=== PATIENT | female | born 1980 | race American Indian/Alaskan Native ===

== ENCOUNTER 2018-04-05 12:46 | Emergency (ER) | payer SELFPAY ==
[2018-04-05] MEDS ORDERED: REGLAN IV ONE (13:13)
[2018-04-05] MEDS ORDERED: NACL 0.9% 1000 ML 1,000 ML IV ONE (13:13)
[2018-04-05 13:49] VITALS: BP 135/76
[2018-04-05 13:58] LABS: Basophils # (Auto) 0.1 K/mm3 (0.0-0.1); Basophils % (Auto) 0.5 % (0.0-1.8); Eosinophils # (Auto) 0.1 K/mm3 (0.0-0.4); Eosinophils % (Auto) 0.6 % (0.0-4.3); Hemoglobin 12.2 gm/dl (10.1-14.3); Lymphocytes # (Auto) 1.6 K/mm3 (1.2-5.4); Lymphocytes % (Auto) 13.5 % (13.4-35.0); Mean Corpuscular HGB Conc 33 % (30-34); Mean Corpuscular Volume 87 fl (79-97); Monocytes # (Auto) 0.5 K/mm3 (0.0-0.8); Monocytes % (Auto) 3.8 % (0.0-7.3); Platelet Count 423 K/mm3 (140-440); Red Blood Count 4.23 M/mm3 (3.65-5.03); Red Cell Distribution Width 13.3 % (13.2-15.2)
[2018-04-05 14:17] LABS: BUN/Creatinine Ratio 15; Blood Urea Nitrogen 6 mg/dL (7-17); Calcium 9.1 mg/dL (8.4-10.2); Hemolysis Index 5
[2018-04-05] MEDS ORDERED: K-DUR PO ONE (14:19)
--- NOTE | 2018-04-05 14:39 | Emergency Department Report ---
ED N/V/D HPI - General Chief complaint: Nausea/Vomiting/Diarrhea Stated complaint: 13WKS PREG/VOMITING/LIGHTHEADNESS Time Seen by Provider: 04/05/18 13:09 Source: patient Mode of arrival: Ambulatory Limitations: No Limitations - History of Present Illness Initial comments: This is a 38-year-old female nontoxic, well nourished in appearance, no acute signs of distress presents to the ED with c/o of nausea and vomiting 4 days. Patient describes vomiting as food content. Patients stated she is about 12 weeks . She denies any pelvic pain. Patient denies any vaginal bleeding, vaginal discharge or any urinary symptoms. Patient denies any abdominal pain, chest pain, short of breath, fever, chills, headache, stiff neck, numbness or tingling. Patient denies any diarrhea or constipation. Patient denies any recent travels. Patient denies any drug allergies significant past medical history. MD complaint: nausea, vomiting -: days(s) (4) Description of Vomiting: food contents Associated Abdominal Pain: No Radiation: none Pain Scale: 0 Consistency: constant Improves with: none Worsens with: none Associated Symptoms: nausea/vomiting. denies: myalgias, chest pain, cough, diaphoresis, fever/chills, headaches, loss of appetite, malaise, rash, dysuria, shortness of breath, syncope, weakness - Related Data Home Medications Medication Instructions Recorded Confirmed Last Taken Gabapentin 300 mg PO TID 03/28/14 03/28/14 03/27/14 Naproxen [Naprosyn] 375 mg PO BID 03/28/14 03/28/14 03/27/14 Previous Rx's Medication Instructions Recorded Last Taken Type Nitrofurantoin [place]/M-Cryst 100 mg PO Q12HR #10 capsule 03/28/14 Unknown Rx [Macrobid] metroNIDAZOLE [Flagyl] 500 mg PO BID #14 tablet 03/28/14 Unknown Rx traMADol [Ultram 50 MG tab] 50 mg PO Q6HR PRN #20 tablet 03/28/14 Unknown Rx Metoclopramide [Reglan] 10 mg PO TID PRN #30 tab 04/05/18 Unknown Rx 21/Iron Fu/Folic Acid 1 each PO DAILY #30 tablet 04/05/18 Unknown Rx [ Complete Caplet] Allergies Allergy/AdvReac Type Severity Reaction Status Date / Time No Known Allergies Allergy Verified 03/28/14 02:31 ED Review of Systems ROS: Stated complaint: 13WKS PREG/VOMITING/LIGHTHEADNESS Other details as noted in HPI Constitutional: denies: chills, fever Eyes: denies: eye pain, eye discharge, vision change ENT: denies: ear pain, throat pain Respiratory: denies: cough, shortness of breath, wheezing Cardiovascular: denies: chest pain, palpitations Endocrine: no symptoms reported Gastrointestinal: nausea, vomiting. 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) Additional medical history: back injury, Vaginal delivery x 4 - Surgical History Past Surgical History?: No - Social History Smoking Status: Never Smoker Substance Use Type: None - Medications Home Medications: Home Medications Medication Instructions Recorded Confirmed Last Taken Type Gabapentin 300 mg PO TID 03/28/14 03/28/14 03/27/14 History Naproxen [Naprosyn] 375 mg PO BID 03/28/14 03/28/14 03/27/14 History Nitrofurantoin [place]/M-Cryst 100 mg PO Q12HR #10 capsule 03/28/14 Unknown Rx [Macrobid] metroNIDAZOLE [Flagyl] 500 mg PO BID #14 tablet 03/28/14 Unknown Rx traMADol [Ultram 50 MG tab] 50 mg PO Q6HR PRN #20 tablet 03/28/14 Unknown Rx Metoclopramide [Reglan] 10 mg PO TID PRN #30 tab 04/05/18 Unknown Rx 21/Iron Fu/Folic Acid 1 each PO DAILY #30 tablet 04/05/18 Unknown Rx [ Complete Caplet] ED Physical Exam - General Limitations: No Limitations General appearance: alert, in no apparent distress - Head Head exam: Present: atraumatic, normocephalic - Eye Eye exam: Present: normal appearance - Neck Neck exam: Present: normal inspection, full ROM - Respiratory Respiratory exam: Present: normal lung sounds bilaterally. Absent: respiratory distress, wheezes, rales, rhonchi, stridor, chest wall tenderness, accessory muscle use, decreased breath sounds, prolonged expiratory - Cardiovascular Cardiovascular Exam: Present: regular rate, normal rhythm, normal heart sounds. Absent: irregular rhythm, systolic murmur, diastolic murmur, rubs, gallop - GI/Abdominal GI/Abdominal exam: Present: soft, normal bowel sounds. Absent: distended, tenderness, guarding, rebound, rigid, diminished bowel sounds - Back Exam Back exam: Present: normal inspection, full ROM - Neurological Exam Neurological exam: Present: alert, oriented X3 - Psychiatric Psychiatric exam: Present: normal affect, normal mood - Skin Skin exam: Present: warm, dry, intact, normal color. Absent: rash ED Course Vital Signs 04/05/18 04/05/18 04/05/18 12:56 13:10 13:49 Temperature 98.9 F 98.5 F Pulse Rate 107 H 103 H Respiratory 16 16 16 Rate Blood Pressure 135/82 Blood Pressure 135/76 [Left] O2 Sat by Pulse 98 100 Oximetry - Reevaluation(s) Reevaluation #1: 04/05/18 14:42 Patient is speaking in full sentences with no signs of distress noted. ED Medical Decision Making - Lab Data Result diagrams: 04/05/18 13:42 04/05/18 13:42 - Medical Decision Making This is a 38-year-old female that presents with hyperemesis gravidarum and hypokalemia. Patient is stable and was examined by me. There is no abdominal te nderness. Negative signs of symptoms of appendicitis. Labs obtained. Vital signs are stable prior to discharge. Patient received Reglan, K+ 40 meq, and 1L Normal saline in the ED which patient stated symptoms has resolved and subsided. A by mouth challenge has been obtained and patient tolerated well with no nausea vomiting. Patient was also instructed to Follow-up with a OBGYN doctor in 3-5 days or if symptoms worsen and continue return to emergency room as soon as possible. At time of discharge, the patient does not seem toxic or ill in appearance. No acute signs of distress noted. Patient agrees to discharge treatment plan of care. No further questions noted by the patient. Critical care attestation.: If time is entered above; I have spent that time in minutes in the direct care of this critically ill patient, excluding procedure time. ED Disposition Clinical Impression: Hyperemesis gravidarum Disposition: DC-01 TO HOME OR SELFCARE Is pt being admited?: No Does the pt Need Aspirin: No Condition: Stable Instructions: Hyperemesis Gravidarum (ED), (ED) Additional Instructions: Follow-up with a OBGYN doctor in 3-5 days or if symptoms worsen and continue return to emergency room as soon as possible. Prescriptions: Metoclopramide [Reglan] 10 mg PO TID PRN #30 tab PRN Reason: Nausea 21/Iron Fu/Folic Acid [ Complete Caplet] 1 each PO DAILY #30 tablet Referrals: PRIMARY CARE, [Primary Care Provider] - 3-5 Days CODIE LEES MD [Staff Physician] - 3-5 Days [facility] [Provider Group] - 3-5 Days Forms: Work/School Release Form(ED)
== END 2018-04-05 14:59 | disposition home or self-care (01) ==
LOC: ED 12:46
DX: O21.1 Hyperemesis gravidarum with metabolic disturbance (principal); O99.341 Other mental disorders complicating pregnancy, first trimester; F31.9 Bipolar disorder, unspecified; Z3A.12 12 weeks gestation of pregnancy
CPT/HCPCS: 36415; 80048; 85025; 96361; 96374; 99283; J2765; J7030

== ENCOUNTER 2018-06-26 12:23 | Outpatient (CLI) | payer MEDICAID ==
[2018-06-26] MEDS ORDERED: LACTATED RINGERS 500 ML IV ONE (12:48)
[2018-06-26 16:52] VITALS: BP 131/63
--- NOTE | 2018-06-26 16:58 | Ultrasound Report ---
PROCEDURE: US OB LIMITED TECHNIQUE: HISTORY: f/u fall r/o abruption placenta location COMPARISONS: FINDINGS: There is a single living intrauterine gestation currently in the breech presentation with a hea rt rate of 141 bpm. Subjectively the amount of amniotic fluid appears normal. The placenta is located anteriorly grade 1. No placental abruption is visualized. No definite placenta previa. The internal cervical os was not studied in detail. Weekend exam of the fetus was not performed as this was not requested. No measurements were obt ained. IMPRESSION: Subjectively the amount of amniotic fluid appears normal. Single living intrauterine gestation currently visualized breech presentation. Grade 1 placenta. No evidence of placental abruption. Placenta previa is not identified however the i nternal cervical os was not studied in detail. This is a limited exam. No other abnormalities are identified. This document is electronically signed by Padilla Muniz MD., June 26 2018 04:56:20 PM ET
== END 2018-06-26 17:32 | disposition home or self-care (01) ==
LOC: TRG 12:23
PROVIDERS: ATTEND Obstetrics & Gynecology
DX: O47.02 False labor before 37 completed weeks of gestation, second trimester (principal); Z3A.24 24 weeks gestation of pregnancy
CPT/HCPCS: 76815

== ENCOUNTER 2018-09-12 15:06 | Observation (INO) | payer MEDICAID ==
[2018-09-12] MEDS ORDERED: LACTATED RINGERS 500 ML IV ONE ×2 (15:58→17:00)
[2018-09-12] MEDS ORDERED: ZOFRAN IV ONE (17:41)
[2018-09-12 18:17] LABS: Alanine Aminotransferase 23 units/L (7-56); BUN/Creatinine Ratio 15; Blood Urea Nitrogen 6 mg/dL (7-17); Calcium 10.1 mg/dL (8.4-10.2); Hemolysis Index 11
[2018-09-12 20:24] LABS: Bilirubin,Urine NEG (Negative); Blood,Urine NEG (Negative); Calcium Oxalate Crystals,Urine 2+; Color,Urine Amber (Yellow); Mucus,Urine 3+ /HPF; Urobilinogen,Urine < 2.0 mg/dL (<2.0)
[2018-09-12] MEDS ORDERED: ZOFRAN IV PRN (21:02)
[2018-09-12] MEDS ORDERED: TYLENOL PO PRN (21:02)
[2018-09-12] MEDS ORDERED: COLACE PO PRN (21:02)
[2018-09-12] MEDS ORDERED: REGLAN IV SCH (22:00)
[2018-09-12] MEDS ORDERED: D5LR 1,000 ML IV SCH ×2 (22:00)
[2018-09-12] MEDS ORDERED: PHENERGAN PR SCH (22:00)
[2018-09-13] MEDS: KCL 10MEQ/100ML 10 MEQ/100 ML BAG IV SCH ×4 (00:40→16:57)
[2018-09-13] MEDS ORDERED: PRENATAL VITAMIN PO SCH (10:00)
[2018-09-13] MEDS: PRENATAL VITAMIN PO SCH (11:02)
--- NOTE | 2018-09-13 13:13 | History and Physical Report ---
History of Present Illness Date of examination: 09/13/18 Date of admission: 09/12/18 23:42 Chief complaint: nausea and vomiting History of present illness: 38 yo at 35 weeks here for nausea and vomiting and contractions. 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 SHe also has hx of thrombocytosis seen by Hematology/ She has a hx of PTD at 36 weeks Past History Past Medical History: no pertinent history Past Surgical History: no surgical history Family/Genetic History: none Social history: single. denies: smoking, alcohol abuse, prescription drug abuse - Obstetrical History Expected Date of Delivery: 10/12/18 Actual Gestation: 35 Week(s) 6 Day(s) : 5 Para: 3 Hx # Term Pregnancies: 1 Number of Pregnancies: 1 Spontaneous Abortions: 0 Induced : 0 Number of Living Children: 4 Medications and Allergies Allergies Allergy/AdvReac Type Severity Reaction Status Date / Time No Known Allergies Allergy Verified 03/28/14 02:31 Home Medications Medication Instructions Recorded Confirmed Last Taken Type Gabapentin 300 mg PO TID 03/28/14 03/28/14 03/27/14 History Naproxen [Naprosyn] 375 mg PO BID 03/28/14 03/28/14 03/27/14 History Nitrofurantoin [place]/M-Cryst 100 mg PO Q12HR #10 capsule 03/28/14 Unknown Rx [Macrobid] metroNIDAZOLE [Flagyl] 500 mg PO BID #14 tablet 03/28/14 Unknown Rx traMADol [Ultram 50 MG tab] 50 mg PO Q6HR PRN #20 tablet 03/28/14 Unknown Rx Metoclopramide [Reglan] 10 mg PO TID PRN #30 tab 04/05/18 Unknown Rx 21/Iron Fu/Folic Acid 1 each PO DAILY #30 tablet 04/05/18 Unknown Rx [ Complete Caplet] Active Meds: Active Medications Acetaminophen (Tylenol) 650 mg PO Q4H PRN PRN Reason: Pain MILD(1-3)/Fever >100.5/QUIROZ Last Admin: 09/13/18 11:00 Dose: 650 mg Documented by: Docusate Sodium (Colace) 100 mg PO Q12H PRN PRN Reason: Constipation Dextrose/Lactated Ringer's (D5lr) 1,000 mls @ 500 mls/hr IV DIRECT CRUZ Stop: 09/13/18 23:59 Last Admin: 09/13/18 00:02 Dose: 500 mls/hr Documented by: Dextrose/Lactated Ringer's (D5lr) 1,000 mls @ 150 mls/hr IV DIRECT CRUZ Potassium Chloride (Kcl 10meq/100ml) 10 meq in 100 mls @ 100 mls/hr IV Q1H CRUZ Stop: 09/13/18 15:29 Multivitamins/Iron/Calcium ( Vitamin) 1 each PO QDAY [facility] Last Admin: 09/13/18 11:02 Dose: Not Given Documented by: Ondansetron HCl (Zofran) 4 mg IV Q6H PRN PRN Reason: N/V unrelieved by Juvenal Last Admin: 09/13/18 08:59 Dose: 4 mg Documented by: Review of Systems All systems: negative - Vital Signs Vital signs: Vital Signs Pulse BP 103 H 114/71 09/12/18 20:27 09/12/18 20:27 Temp Pulse Resp BP Pulse Ox 98.0 F 99 H 18 119/67 97 09/13/18 08:45 09/13/18 04:01 09/13/18 04:01 09/13/18 04:01 09/13/18 01:46 - Physical Exam Breasts: Positive: normal Cardiovascular: Regular rate, Normal S1 Lungs: Positive: Clear to auscultation, Normal air movement Abdomen: Positive: normal appearance, soft, guarding, normal bowel sounds. Negative: distention, tenderness Genitourinary (Female): Positive: normal external genitalia, normal perenium Vulva: both: normal Uterus: Positive: normal size, normal contour Deep Tendon Reflex Grade: Normal +2 - Obstetrical FHR: category 1 Cervical Dilatation: 0.5 Uterine Tone Measurement Phase: Resting Uterine Contraction Intensity: Mild Results Result Diagrams: 09/13/18 06:32 Abnormal lab results 09/12/18 09/12/18 09/13/18 Range/Units 16:56 19:40 06:32 Potassium 3.0 L 3.1 L (3.6-5.0) mmol/L Carbon Dioxide 19 L (22-30) mmol/L BUN 6 L (7-17) mg/dL Creatinine 0.4 L (0.7-1.2) mg/dL Alkaline Phosphatase 180 H (35-129) units/L Albumin 3.0 L (3.9-5) g/dL Urine WBC (Auto) 7.0 H (0.0-6.0) /HPF All other labs normal. Assessment and Plan A/P IUP 35+ weeks n/v hypokalemia obesity Runs of postassium last level 3.1 repeat zofran for nausea - no vomiting in several hours continuious monitoring US abdomen to assess gall bladder Liver enzymes, cbc, cmp today
[2018-09-13 16:07] LABS: Basophils % (Auto) 0.5 % (0.0-1.8); Eosinophils % (Auto) 0.6 % (0.0-4.3); Hematocrit 33.4 % (30.3-42.9); Hemoglobin 11.5 gm/dl (10.1-14.3); Lymphocytes # (Auto) 1.3 K/mm3 (1.2-5.4); Lymphocytes % (Auto) 17.1 % (13.4-35.0); Mean Corpuscular HGB Conc 35 % (30-34); Mean Corpuscular Volume 84 fl (79-97); Monocytes # (Auto) 0.3 K/mm3 (0.0-0.8); Monocytes % (Auto) 3.4 % (0.0-7.3); Platelet Count 400 K/mm3 (140-440); Red Blood Count 3.98 M/mm3 (3.65-5.03); Red Cell Distribution Width 14.1 % (13.2-15.2)
[2018-09-13 16:33] LABS: Alanine Aminotransferase 24 units/L (7-56); Albumin 2.9 g/dL (3.9-5); BUN/Creatinine Ratio 13; Bilirubin,Direct 0.3 mg/dL (0-0.2); Blood Urea Nitrogen 5 mg/dL (7-17); Calcium 9.2 mg/dL (8.4-10.2); Hemolysis Index 5
--- NOTE | 2018-09-13 19:10 | Ultrasound Report ---
PROCEDURE: US OB FOLLOW UP HISTORY: well being FINDINGS: Real-time ultrasound of the pelvis was performed. There is a single live intrauterine gestation with biparietal diameter of 7.97 cm corresponding to 32 weeks and 0 days. Head circumference is 20.1 cm which corresponds to 30 weeks and 6 days. Abdominal circumference is 32.0 cm which corresponds to 36 weeks and 0 days. Femur length was 6.8 cm corresponding to 35 weeks and 2 days. The ratio of head circumference to abdominal circumference is low , at 0.88, with the normal range be ing 0.93 to 1.11 Estimated weight is 2503 g Amniotic fluid index was 17.6 cm which is normal. cardiac activity is present at 131 bpm. Cervical length was 3.3 cm. There is an anterior placenta, grade 0. No placental abruption is seen. IMPRESSION: Live intrauterine gestation in cephalic lie, at approximately 33 weeks and 4 days. Estima guido date of delivery is October 28, 2018 The ratio of head circumference to abdominal circumference is low This document is electronically signed by Edison Regalado MD., September 13 2018 07:08:56 PM ET
--- NOTE | 2018-09-13 19:14 | Ultrasound Report ---
PROCEDURE: US OB BPP WO NON-STRESS HISTORY: FWB FINDINGS: Biophysical profile was performed. Biophysical profile was 8 of 8. cardiac activity is present in 1 31 bpm. Amniotic fluid index is 17.6 cm. IMPRESSION: Biophysical profile 8 of 8 This document is electronically signed by Edison Regalado MD., September 13 2018 07:12:56 PM ET
--- NOTE | 2018-09-13 19:18 | Ultrasound Report ---
PROCEDURE: US OB VELOCIMETRY UMBILCAL ART HISTORY: FWB FINDINGS: Real-time ultrasound was performed with attention to the umbilicus artery. S/D ratio was 2.26 which is within normal limits for age. Resistive index of 0.55 which is within normal limits. IMPRESSION: Umbilical artery S/D ratio and resistive index are within normal limits This document is electronically signed by Edison Regalado MD., September 13 2018 07:16:08 PM ET
[2018-09-14] MEDS ORDERED: KCL 10MEQ/100ML 10 MEQ/100 ML BAG IV SCH (01:00)
[2018-09-14] MEDS: KCL 10MEQ/100ML 10 MEQ/100 ML BAG IV SCH (06:20)
--- NOTE | 2018-09-14 07:54 | Ultrasound Report ---
ULTRASOUND ABDOMEN COMPLETE: TECHNIQUE: Transabdominal ultrasound with color Doppler interrogation. HISTORY: Patient with nausea and vomiting, assess for gallbladder. COMPARISON: none. FINDINGS: LIVER: Normal. BILIARY SYSTEM: The gallbladder is contracted. No obvious cholelithiasis. The CBD measures 4.1 mm. PANCREAS: Normal. SPLEEN: Normal. KIDNEYS: The right kidney appears slightly echogenic and measures 10.8 cm. Mild right hydronephrosis is identified. No focal renal lesion. The left kidney is within normal limits measuring 12.1 cm. AORTA/IVC: Normal. ASCITES: None. IMPRESSION: The gallbladder is contracted but no obvious cholelithiasis or inflammation. Mild right hydronephrosis.
[2018-09-14] MEDS: PRENATAL VITAMIN PO SCH (10:08)
[2018-09-14 14:16] LABS: Alanine Aminotransferase 27 units/L (7-56); Albumin 2.9 g/dL (3.9-5); BUN/Creatinine Ratio 10; Blood Urea Nitrogen 5 mg/dL (7-17); Calcium 8.8 mg/dL (8.4-10.2); Hemolysis Index 4
[2018-09-14 14:21] VITALS: BP 105/55
--- NOTE | 2018-09-14 17:42 | Discharge Summary ---
Providers - Providers Date of Admission: 09/12/18 23:42 Date of discharge: 09/14/18 Attending physician: RIGOBERTO ALFREDO Primary care physician: RIGOBERTO ALFREDO Hospitalization Reason for admission: other (hypokalemia ) Hospital course: Patient was admitted after vomiting for 2 days and came in for evlaluation. Hypokalemia noted and runs of K+ given. Patient received IVF and continuous monitoring. VSS. US normal. Cat 1 strip. Patient to be discharged home with f/u in 1 weeks. Cervix constinuses to be stable at FT/ thick and high. Patietn instructions included to come back to hospital if any n,v, f, chills. or contractions or decreased movement. Condition at discharge: Good Disposition: DC-01 TO HOME OR SELFCARE Plan - Provider Discharge Summary Activity: routine, no sex for 6 weeks, no strenuous exercise Diet: routine Instructions: routine Additional instructions: [] Smoking cessation referral if applicable(refer to patient education folder for contact #) [] Refer to [facility]'s [facility] Booklet Call your doctor immediately for: * Fever > 100.5 * Heavy vaginal bleeding ( >1 pad per hour) * Severe persistent headache * Shortness of breath * Reddened, hot, painful area to leg or breast * Drainage or odor from incision. * Keep incision clean and dry at all times and follow doctor's instructions regarding bathing/showering - Follow up plan Follow up: RIGOBERTO ALFREDO MD [Primary Care Provider] - 7 Days Forms: [facility] Discharge Summary
== END 2018-09-14 16:20 | disposition home or self-care (01) ==
LOC: TRG 15:06 → LD 23:42
PROVIDERS: ADMIT Obstetrics & Gynecology; ATTEND Obstetrics & Gynecology
DX: O21.0 Mild hyperemesis gravidarum (principal); O99.213 Obesity complicating pregnancy, third trimester; O99.343 Other mental disorders complicating pregnancy, third trimester; O99.283 Endocrine, nutritional and metabolic diseases complicating pregnancy, third trimester; E87.6 Hypokalemia
CPT/HCPCS: 36415; 59025; 76700; 76816; 76819; 76820; 80053; 80076; 81001; 82150; 83690; 84132; 85025; 86850; 86900; 86901; 96361; 96365; 96366; 96375; 96376; G0378; J2405; J2765; J3480; J7120; J7121

== ENCOUNTER 2018-09-26 20:41 | Inpatient (IN) | payer MEDICAID ==
[2018-09-26] MEDS ORDERED: SUBLIMAZE IV PRN (23:06)
[2018-09-26] MEDS ORDERED: NARCAN 0.4 MG/1 ML IV PRN (23:06)
[2018-09-26] MEDS ORDERED: MINERAL OIL PO PRN (23:06)
[2018-09-26] MEDS ORDERED: XYLOCAINE 2% INFILTRATI ONE (23:06)
[2018-09-26] MEDS ORDERED: PHENERGAN PO PRN (23:06)
[2018-09-26] MEDS ORDERED: NUBAIN IV PRN (23:06)
[2018-09-26] MEDS ORDERED: ZOFRAN IV PRN (23:06)
[2018-09-26] MEDS ORDERED: BRETHINE SUB-Q PRN (23:06)
[2018-09-26] MEDS ORDERED: BRETHINE IVP PRN (23:06)
[2018-09-26 23:45] LABS: Hemoglobin 11.7 gm/dl (10.1-14.3); Red Blood Count 4.06 M/mm3 (3.65-5.03)
[2018-09-26] MEDS ORDERED: CERVIDIL VG ONE (23:45)
[2018-09-26 23:46] LABS: Hematocrit 34.6 % (30.3-42.9); Mean Corpuscular HGB Conc 34 % (30-34); Mean Corpuscular Volume 85 fl (79-97)
[2018-09-26 23:47] LABS: Platelet Count 389 K/mm3 (140-440)
[2018-09-26] MEDS ORDERED: PEPCID IV ONE (23:49)
[2018-09-26] MEDS: LACTATED RINGERS 1,000 ML IV SCH (23:53)
[2018-09-26] MEDS ORDERED: AMBIEN PO PRN (23:54)
[2018-09-27] MEDS ORDERED: PITOCin/NS 30 UNIT/500ML 30,000 MILLIUNITS/500 ML BAG IV ONE (01:32)
[2018-09-27] MEDS: PITOCin/NS 30 UNIT/500ML 30 UNITS/500 ML BAG IV SCH (01:35)
[2018-09-27] MEDS: LACTATED RINGERS 1,000 ML IV SCH ×2 (01:36→20:50)
[2018-09-27] MEDS: STADOL IV PRN ×4 (03:34→20:50)
[2018-09-27] MEDS: PEPCID IV PRN (08:05)
--- NOTE | 2018-09-27 08:17 | History and Physical Report ---
History of Present Illness Date of examination: 09/27/18 Date of admission: 09/26/18 20:41 Chief complaint: Here for IOL for cholestasis History of present illness: Pt is a 38 yo [id number] at 37.6 wks with intrahepatic cholestasis of . She has had care at [facility] since the second trimester. 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 She has been followed by MFM and had a reassuring BPP at term. She reported palm and sole itching at her JONNY visit yesterday, and bile acids were noted to be 16. She presented last night for IOL for cholestasis. Positive FM. 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, myomectomy Social history: no significant social history - Obstetrical History Expected Date of Delivery: 10/12/18 Actual Gestation: 37 Week(s) 6 Day(s) : 5 Para: 4 Hx # Term Pregnancies: 3 Number of Pregnancies: 1 Spontaneous Abortions: 0 Induced : 0 Number of Living Children: 4 Medications and Allergies Allergies Allergy/AdvReac Type Severity Reaction Status Date / Time No Known Allergies Allergy Verified 03/28/14 02:31 Home Medications Medication Instructions Recorded Confirmed Last Taken Type Gabapentin 300 mg PO TID 03/28/14 09/14/18 03/27/14 History Naproxen [Naprosyn] 375 mg PO BID 03/28/14 09/14/18 03/27/14 History Nitrofurantoin [place]/M-Cryst 100 mg PO Q12HR #10 capsule 03/28/14 09/14/18 Unknown Rx [Macrobid] metroNIDAZOLE [Flagyl] 500 mg PO BID #14 tablet 03/28/14 09/14/18 Unknown Rx traMADol [Ultram 50 MG tab] 50 mg PO Q6HR PRN #20 tablet 03/28/14 09/14/18 Unknown Rx Metoclopramide [Reglan] 10 mg PO TID PRN #30 tab 04/05/18 09/14/18 Unknown Rx 21/Iron Fu/Folic Acid 1 each PO DAILY #30 tablet 04/05/18 09/14/18 Unknown Rx [ Complete Caplet] Active Meds: Active Medications Butorphanol Tartrate (Stadol) 2 mg IV Q2H PRN PRN Reason: Pain , Severe (7-10) Last Admin: 09/27/18 03:34 Dose: 2 mg Documented by: Ephedrine Sulfate (Ephedrine Sulfate) 10 mg IV Q2M PRN PRN Reason: Hypotension Famotidine (Pepcid) 20 mg IV BID PRN PRN Reason: Dyspepsia Last Admin: 09/27/18 08:05 Dose: 20 mg Documented by: Fentanyl (Sublimaze) 100 mcg IV Q2H PRN PRN Reason: Labor Pain Oxytocin/Sodium Chloride (Pitocin/Ns 20 Unit/1000ml Drip) 20 units in 1,000 mls @ 125 mls/hr IV DIRECT CRUZ Lactated Ringer's (Lactated Ringers) 1,000 mls @ 125 mls/hr IV DIRECT CRUZ Last Admin: 09/27/18 01:36 Dose: 125 mls/hr Documented by: Oxytocin/Sodium Chloride (Pitocin/Ns 30 Unit/500ml) 30 units in 500 mls @ 1 mls/hr IV TITR CRUZ; Protocol Last Titration: 09/27/18 03:40 Dose: 3 mls/hr, 3 mls/hr Documented by: Mineral Oil (Mineral Oil) 30 ml PO QHS PRN PRN Reason: Constipation Nalbuphine HCl (Nubain) 10 mg IV Q2H PRN PRN Reason: Pain, Moderate (4-6) Naloxone HCl (Narcan 0.4 Mg/1 Ml) 0.1 mg IV Q2MIN PRN PRN Reason: Res Rate </= 8 or 02 SAT < 92% Ondansetron HCl (Zofran) 4 mg IV Q8H PRN PRN Reason: Nausea And Vomiting Last Admin: 09/26/18 23:53 Dose: 4 mg Documented by: Promethazine HCl (Phenergan) 25 mg PO Q6H PRN PRN Reason: Nausea And Vomiting Terbutaline Sulfate (Brethine) 0.25 mg SUB-Q ONCE PRN PRN Reason: Hyperstimulation/Hypertonicity Terbutaline Sulfate (Brethine) 0.25 mg IVP ONCE PRN PRN Reason: Hyperstimulation/Hypertonicity Zolpidem Tartrate (Ambien) 10 mg PO QHS PRN PRN Reason: Insomnia Review of Systems All systems: negative - Vital Signs Vital signs: Vital Signs Pulse BP 96 H 109/74 09/27/18 03:32 09/27/18 03:32 Temp Pulse Resp BP Pulse Ox 87 105/70 09/27/18 07:31 09/27/18 07:31 - Physical Exam Breasts: Positive: deferred Cardiovascular: Regular rate, Normal S1, Normal S2, No murmurs Lungs: Positive: Clear to auscultation, Normal air movement Abdomen: Positive: normal appearance, soft Genitourinary (Female): Positive: normal external genitalia, normal perenium Vagina: Positive: normal moisture Uterus: Positive: normal size (Gravid), normal contour Extremities: Positive: normal - Obstetrical FHR: auscultation normal, category 1 Uterine Contraction Monitor Mode: External Cervical Dilatation: 0 Cervical Effacement Percentage: 40 station: -4 Uterine Contraction Frequency (min): 3 Uterine Contraction Pattern: Regular Uterine Contraction Intensity: Moderate Results Result Diagrams: 09/26/18 23:28 All other labs normal. Assessment and Plan A: 1. ICP at term 2. Morbid obesity 3. Category 1 FHT 4. Cervix unfavorable P: 1. Initiate Cervidil 2. Monitor FHT per protocol 3. Anticipate
[2018-09-27] MEDS ORDERED: CERVIDIL VG ONE (09:00)
[2018-09-28] MEDS: PITOCin/NS 30 UNIT/500ML 30 UNITS/500 ML BAG IV SCH (00:16)
[2018-09-28] MEDS: PEPCID IV PRN (00:30)
[2018-09-28] MEDS: STADOL IV PRN ×3 (01:53→10:57)
[2018-09-28] MEDS: LACTATED RINGERS 1,000 ML IV SCH ×3 (01:55→15:25)
--- NOTE | 2018-09-28 10:52 | Event Note ---
Date: 09/28/18 Pt is reporting more pain, requesting an epidural. SVE now /3, AROMed clear fluid. FHT category 1 throughout. Pt tolerated well.
[2018-09-28] MEDS ORDERED: MARCAINE 0.25% INFILTRATI ONE (12:34)
[2018-09-28] MEDS ORDERED: NARCAN 2 MG/2 ML IV PRN (13:09)
--- NOTE | 2018-09-28 13:35 | Anesthesia Consultation ---
Anesthesia Consult and Med Hx Date of service: 09/28/18 - Airway ROM Head & Neck: Adequate Mental/Hyoid Distance: Adequate Mallampati Class: Class II Intubation Access Assessment: Probably Good - Pulmonary Exam CTA: Yes - Cardiac Exam Cardiac Exam: RRR - Pre-Operative Health Status ASA Pre-Surgery Classification: ASA3 Proposed Anesthetic Plan: Epidural - Pulmonary Hx Asthma: No COPD: No Hx Pneumonia: No Hx Sleep Apnea: No (snores) - Cardiovascular System Hx Hypertension: No - Central Nervous System Hx Seizures: No Hx Psychiatric Problems: No - Endocrine Hx Renal Disease: No Hx End Stage Renal Disease: No Hx Liver Disease: Yes (intrahepatic cholestatis of ) Hx Hypothyroidism: No Hx Hyperthyroidism: No - Hematic Hx Anemia: No Hx Sickle Cell Disease: No - Other Systems Hx Alcohol Use: No - Additional Comments Anesthesia Medical History Comments: obesity
--- NOTE | 2018-09-28 13:35 | Anesthesia Day of Surgery ---
Anesthesia Day of Surgery - Day of Surgery Patient Examined: Yes Patient H&P Reviewed: Yes Patient is NPO: Yes
[2018-09-28] MEDS ORDERED: fentaNYL-BUPIV 2 MCG/ML-0.125% 200 MCG/100 ML BAG EPIDURAL SCH (14:00)
[2018-09-28] MEDS: PITOCin/NS 20 UNIT/1000ML DRIP 20 UNITS/1,000 ML BAG IV SCH ×2 (16:34→17:58)
--- NOTE | 2018-09-28 16:41 | Event Note ---
Date: 09/28/18 Attended vaginal delivery performed by Natalia Call CNM. No complications. See delivery note for details
--- NOTE | 2018-09-28 16:50 | Procedure Note ---
OB Delivery Note - Delivery Date of Delivery: 09/28/18 Estimated blood loss: other (150) - Vaginal Delivery presentation: vertex Delivery position: OA Intrapartum events: none Delivery induction: other (Pitocin followed by Cervidil for cervical ripening) Delivery augmentation: rupture of membranes, pitocin Delivery monitor: external FHT, external uterine Route of delivery: Delivery placenta: spontaneous Delivery cord: 3 umbilical vessels Episiotomy: none Delivery laceration: none Anesthesia: epidural Delivery comments: Excellent maternal pushing starting at 1603, resulted in of viable female infant at 1624. Head restituted JIMBO, shoulders followed easily. Cord was clamped by CNM and cut by FOB at 1634. Jostin placenta delivered spontaneously at 1634, intact. EBL 150, fundus firm 3fb below umbilicus, minimal bleeding. Perineal abrasion noted. Apgars 8/9, 2613 g, 17.5 in. Excellent maternal infant bonding. - Infant A at 1 minute: 8 at 5 minutes: 9 Gender: Female
[2018-09-28] MEDS ORDERED: PHENERGAN PR PRN (18:51)
[2018-09-28] MEDS ORDERED: BENADRYL PO PRN (18:51)
[2018-09-28] MEDS ORDERED: LANSINOH TP PRN (18:51)
[2018-09-28] MEDS ORDERED: MILK OF MAGNESIA PO PRN (18:51)
[2018-09-28] MEDS ORDERED: TUCKS PAD TP PRN (18:51)
[2018-09-28] MEDS ORDERED: TYLENOL PO PRN (18:51)
[2018-09-28] MEDS ORDERED: NORCO 5/325 PO PRN (18:51)
[2018-09-28] MEDS ORDERED: SODIUM CHLORIDE FLUSH SYRINGE 10 ML IV NR (18:51)
[2018-09-28] MEDS ORDERED: ZOFRAN IV PRN (18:51)
[2018-09-28] MEDS ORDERED: DULCOLAX PR PRN (18:51)
[2018-09-28] MEDS ORDERED: PHENERGAN PO PRN (18:51)
[2018-09-28] MEDS: IBUPROFEN PO SCH (19:50)
[2018-09-28] MEDS: FEOSOL PO SCH (21:22)
[2018-09-28] MEDS: COLACE PO SCH (21:22)
[2018-09-29] MEDS: IBUPROFEN PO SCH ×4 (01:32→18:06)
[2018-09-29 05:44] LABS: Hematocrit 32.8 % (30.3-42.9)
--- NOTE | 2018-09-29 08:52 | Progress Note ---
Assessment and Plan - Patient Problems (1) (normal spontaneous vaginal delivery) Current Visit: Yes Status: Acute Plan to address problem: patient doing well discharge home tomorrow Subjective - Subjective Date of service: 09/29/18 Interval history: Patient complains of minor uterine cramping. Currently . Tolerating regular diet Patient reports: appetite normal, voiding normally, pain well controlled [place]: doing well, nursing well Objective - Vital Signs Latest vital signs: Vital Signs Temp Pulse Resp BP Pulse Ox 09/28/18 23:35 97.8 F 100 H 20 109/76 09/28/18 18:21 98.1 F 73 16 118/50 100 09/28/18 17:38 81 119/51 09/28/18 17:23 82 112/53 09/28/18 17:09 93 H 142/63 09/28/18 16:53 100 H 92/50 09/28/18 16:38 100 H 100/49 09/28/18 16:24 135 H 91 09/28/18 16:22 131 H 96 09/28/18 16:17 123 H 115/60 97 09/28/18 16:15 122 H 122/76 09/28/18 16:13 139 H 135/79 09/28/18 16:12 136 H 96 09/28/18 16:10 139 H 132/84 09/28/18 16:07 133 H 96 09/28/18 16:05 121 H 156/95 09/28/18 16:03 122 H 126/67 09/28/18 16:02 130 H 94 09/28/18 16:01 115 H 99/55 09/28/18 15:58 112 H 113/61 09/28/18 15:57 118 H 120/64 96 09/28/18 15:56 126 H 94 09/28/18 15:54 116 H 109/68 09/28/18 15:52 113 H 106/65 95 09/28/18 15:50 112 H 110/67 09/28/18 15:49 115 H 94 09/28/18 15:48 103 H 109/69 09/28/18 15:47 122 H 96 09/28/18 15:46 114 H 112/67 09/28/18 15:44 121 H 120/70 09/28/18 15:42 116 H 107/65 96 09/28/18 15:40 115 H 114/69 09/28/18 15:38 121 H 118/68 09/28/18 15:37 110 H 97 09/28/18 15:36 112 H 114/68 09/28/18 15:34 110 H 112/64 09/28/18 15:32 113 H 112/65 97 09/28/18 15:30 107 H 112/68 09/28/18 15:29 106 H 94 09/28/18 15:28 109 H 112/68 09/28/18 15:27 109 H 96 09/28/18 15:26 120 H 113/72 09/28/18 15:24 110 H 111/71 09/28/18 15:22 101 H 107/67 91 09/28/18 15:20 118 H 116/73 09/28/18 15:18 110 H 110/67 09/28/18 15:17 109 H 97 09/28/18 15:16 102 H 113/71 09/28/18 15:14 114 H 123/77 09/28/18 15:13 101 H 94 09/28/18 15:12 102 H 114/66 95 09/28/18 15:10 100 H 111/60 09/28/18 15:08 98 H 120/62 09/28/18 15:07 116 H 94 09/28/18 15:06 90 121/64 09/28/18 15:05 112 H 118/68 09/28/18 15:02 95 H 104/55 96 09/28/18 15:00 97.9 F 96 H 18 113/72 09/28/18 14:58 110 H 122/71 09/28/18 14:57 102 H 94 09/28/18 14:56 90 121/67 09/28/18 14:54 97 H 118/64 09/28/18 14:52 107 H 116/63 96 09/28/18 14:51 112 H 121/63 92 09/28/18 14:49 103 H 129/91 09/28/18 14:47 107 H 122/64 95 09/28/18 14:45 91 H 138/102 09/28/18 14:42 98 H 98 09/28/18 14:41 88 123/68 09/28/18 14:38 97 H 114/81 09/28/18 14:37 83 98 09/28/18 14:36 85 110/68 09/28/18 14:34 100 H 117/73 09/28/18 14:32 80 105/66 99 09/28/18 14:30 80 115/73 09/28/18 14:28 86 111/70 09/28/18 14:27 98 H 99 09/28/18 14:26 93 H 112/68 09/28/18 14:24 93 H 116/70 09/28/18 14:22 85 111/70 100 09/28/18 14:20 90 113/69 09/28/18 14:18 88 115/70 09/28/18 14:17 84 100 09/28/18 14:16 94 H 112/72 09/28/18 14:14 90 109/68 09/28/18 14:12 93 H 119/72 99 09/28/18 14:10 90 112/65 09/28/18 14:08 94 H 110/66 09/28/18 14:07 89 97 09/28/18 14:06 88 111/66 09/28/18 14:04 90 108/66 09/28/18 14:02 84 105/64 97 09/28/18 14:00 89 108/66 09/28/18 13:58 85 111/67 09/28/18 13:57 100 H 96 09/28/18 13:56 96 H 105/64 09/28/18 13:54 91 H 113/69 09/28/18 13:53 90 106/69 09/28/18 13:52 89 97 09/28/18 13:50 90 89/52 09/28/18 13:48 82 90/54 09/28/18 13:47 96 H 96 09/28/18 13:46 94 H 85/52 09/28/18 13:44 100 H 89/57 09/28/18 13:42 92 H 83/54 96 09/28/18 13:40 90 89/52 09/28/18 13:38 90 84/50 09/28/18 13:37 109 H 96 09/28/18 13:36 108 H 91/53 09/28/18 13:34 118 H 90/56 09/28/18 13:33 113 H 77/47 09/28/18 13:32 116 H 97 09/28/18 13:30 103 H 80/48 09/28/18 13:27 111 H 84/49 95 09/28/18 13:22 123 H 98 09/28/18 13:20 118 H 90/55 09/28/18 13:19 117 H 91/53 09/28/18 13:17 118 H 98 09/28/18 13:16 116 H 94/54 09/28/18 13:14 122 H 95/54 09/28/18 13:12 122 H 97 09/28/18 13:11 121 H 89/53 09/28/18 13:09 118 H 96/58 09/28/18 13:07 103 H 80/42 97 09/28/18 13:02 107 H 96 09/28/18 12:57 122 H 97 09/28/18 12:56 122 H 123/53 09/28/18 12:54 112 H 120/60 09/28/18 12:52 107 H 130/62 98 09/28/18 12:50 112 H 144/69 09/28/18 12:49 118 H 133/81 09/28/18 12:47 116 H 96 09/28/18 12:44 113 H 126/60 09/28/18 12:42 111 H 144/60 97 09/28/18 12:41 117 H 126/64 09/28/18 12:38 116 H 146/84 09/28/18 12:37 121 H 97 09/28/18 12:36 109 H 134/82 09/28/18 12:34 111 H 130/83 09/28/18 12:32 111 H 134/91 96 09/28/18 12:24 101 H 143/90 09/28/18 12:10 98 H 129/80 09/28/18 11:54 94 H 135/77 09/28/18 11:40 95 H 142/74 09/28/18 11:24 99 H 152/91 09/28/18 11:16 98.7 F 18 09/28/18 11:09 90 106/63 09/28/18 10:54 96 H 104/63 09/28/18 10:51 100 H 101/65 09/28/18 09:40 89 115/85 09/28/18 09:24 85 123/81 07/04/19 09:10 88 127/81 09/28/18 08:54 87 107/66 Intake and Output 09/28/18 09/29/18 09/29/18 22:59 06:59 14:59 Intake Total 199.667 360 Output Total 500 Balance -300.333 360 Intake: IV 199.667 PITOCin/NS 20 UNIT/1000ML 175 DRIP 20 units In 1,000 ml @ 125 mls/hr IV DIRECT CRUZ Rx#:[id number] PITOCin/NS 30 UNIT/500ML 24.667 30 units In 500 ml @ 1 mls/hr IV TITR CRUZ Rx#: [id number] Intake, Free Water 360 Output: Urine 500 Void 500 Other: Total, Output Amount 200 # Voids Void 1 1 # Bowel Movements 1 Estimated Blood Loss 150 - Exam Uterus: Present: normal, firm
--- NOTE | 2018-09-29 08:53 | Discharge Summary ---
Providers - Providers Date of Admission: 09/26/18 20:41 Date of discharge: 09/30/18 Attending physician: MACO LEES MD 09/28/18 18:51 Consult to Assistant Signal Maintainer [CONS] Routine Reason For Exam: assistance with , SNS Primary care physician: MACO LEES MD Hospitalization Reason for admission: induction of labor Delivery: Discharge diagnosis: IUP at term delivered Hospital course: Patient an IOL for cholestasis. Patient had a . course uncomplic ated Condition at discharge: Good Disposition: DC-01 TO HOME OR SELFCARE - Discharge Diagnoses (1) (normal spontaneous vaginal delivery) Status: Acute Plan - Discharge Medications Prescriptions: Ibuprofen [Motrin] 800 mg PO Q8HR PRN #60 tablet PRN Reason: Pain, Mild (1-3) HYDROcodone/APAP 5-325 [[place] 5/325] 1 each PO Q6HR PRN #20 tablet PRN Reason: Pain - Provider Discharge Summary Activity: no sex for 6 weeks, no heavy lifting 4 weeks, no strenuous exercise Diet: routine Instructions: routine Additional instructions: [] Smoking cessation referral if applicable(refer to patient education folder for contact #) [] Refer to [facility] Booklet Call your doctor immediately for: * Fever > 100.5 * Heavy vaginal bleeding ( >1 pad per hour) * Severe persistent headache * Shortness of breath * Reddened, hot, painful area to leg or breast * schedule visit in 4 weeks - Follow up plan
[2018-09-29] MEDS: COLACE PO SCH ×3 (10:00→21:57)
[2018-09-29] MEDS: FEOSOL PO SCH ×2 (10:26→21:57)
[2018-09-29] MEDS: PRENATAL VITAMIN PO SCH (10:26)
[2018-09-30] MEDS: IBUPROFEN PO SCH ×3 (00:19→12:57)
[2018-09-30] MEDS: PRENATAL VITAMIN PO SCH (10:08)
[2018-09-30] MEDS: FEOSOL PO SCH (10:08)
[2018-09-30] MEDS: COLACE PO SCH (10:09)
[2018-09-30 10:36] VITALS: BP 128/77
== END 2018-09-30 15:00 | disposition home or self-care (01) | DRG 775 ==
LOC: APU 20:41 → LD 21:24 → OB 09-28 17:57
PROVIDERS: ADMIT Obstetrics & Gynecology; ATTEND Obstetrics & Gynecology
PROC: 10E0XZZ Delivery of Products of Conception, External Approach (ICD-10-PCS; principal; 2018-09-28)
PROC: 3E0R3BZ Introduction of Anesthetic Agent into Spinal Canal, Percutaneous Approach (ICD-10-PCS; 2018-09-28)
PROC: 00HU33Z Insertion of Infusion Device into Spinal Canal, Percutaneous Approach (ICD-10-PCS; 2018-09-28)
DX: O99.214 Obesity complicating childbirth (principal); E66.01 Morbid (severe) obesity due to excess calories; O26.62 Liver and biliary tract disorders in childbirth; K83.1 Obstruction of bile duct; Z3A.37 37 weeks gestation of pregnancy; Z37.0 Single live birth
CPT/HCPCS: 36415; 59200; 85014; 85018; 85027; 86592; 86850; 86900; 86901; G0378; J0595; J2405; J2590; J3010; J7120

== ENCOUNTER 2018-11-01 07:33 | Day surgery (SDC) | payer MEDICAID ==
[~2018-11-01 07:33] MED LIST: ANTIBIOTIC OINT TP ONE; DECADRON ONE; DIPRIVAN 10 MG/ML 1,000 MG/100 ML BOTTLE IV ONE; MARCAINE 0.25% INFILTRATI ONE; XYLOCAINE 1% 20 mL ONE
[2018-11-01] MEDS ORDERED: ZOFRAN IV PRN (08:07)
--- NOTE | 2018-11-01 08:07 | Anesthesia Consultation ---
Anesthesia Consult and Med Hx Date of service: 11/01/18 - Airway Anesthetic Teeth Evaluation: Good ROM Head & Neck: Adequate Mental/Hyoid Distance: Adequate Mallampati Class: Class II Intubation Access Assessment: Good - Pulmonary Exam CTA: Yes - Cardiac Exam Cardiac Exam: RRR - Pre-Operative Health Status ASA Pre-Surgery Classification: ASA1 Proposed Anesthetic Plan: General - Pulmonary Hx Asthma: No COPD: No Hx Pneumonia: No Hx Sleep Apnea: No (snores) - Cardiovascular System Hx Hypertension: No - Central Nervous System Hx Seizures: No Hx Psychiatric Problems: Yes - Endocrine Hx Renal Disease: No Hx End Stage Renal Disease: No Hx Liver Disease: Yes (intrahepatic cholestatis of ) Hx Hypothyroidism: No Hx Hyperthyroidism: No - Hematic Hx Anemia: No Hx Sickle Cell Disease: No - Other Systems Hx Alcohol Use: No Hx Cancer: No
--- NOTE | 2018-11-01 08:07 | Anesthesia Day of Surgery ---
Anesthesia Day of Surgery - Day of Surgery Patient Examined: Yes Patient H&P Reviewed: Yes Patient is NPO: Yes
--- NOTE | 2018-11-01 08:33 | Short Stay Summary ---
Short Stay Documentation Date of service: 11/01/18 Narrative H&P: 38-year-old with undesired fertility. The patient is aware of other contraceptive options and has elected to undergo permanent sterilization. - History Principal diagnosis: undesired fertility Past Medical History: No medical history Past Surgical History: No surgical history Social history: single - Allergies and Medications Current Medications: Allergies No Known Allergies Allergy (Verified 10/26/18 17:52) Home Medications Medication Instructions Recorded Confirmed Last Taken Type No Known Home Medications [No 10/26/18 10/26/18 Unknown History Reported Home Medications] Active Medications Hydromorphone HCl (Dilaudid) 0.5 mg IV Q10MIN PRN PRN Reason: Pain , Severe (7-10) Stop: 11/01/18 20:00 Lactated Ringer's (Lactated Ringers) 1,000 mls @ 75 mls/hr IV DIRECT CRUZ Ondansetron HCl (Zofran) 4 mg IV ONCE PRN PRN Reason: Nausea And Vomiting Stop: 11/01/18 16:00 - Physical exam General appearance: no acute distress Integumentary: no rash HEENT: Atraumatic Lungs: Clear to auscultation Breasts: deferred Heart: Regular rate Gastrointestinal: normal Female Genitourinary: deferred Rectal Exam: deferred Extremities: no ischemia Neurological: Normal gait - Brief post op/procedure progress note Date of procedure: 11/01/18 Pre-op diagnosis: undesired fertility Post-op diagnosis: same Procedure: Laparoscopic bilateral tubal ligation with Filshie clips Anesthesia: GETA Surgeon: EDWARDO MAN Estimated blood loss: none Pathology: none Condition: stable - Hospital course Hospital course: Patient was admitted that he is surgery and underwent a laparoscopic bilateral tubal ligation with Filshie clips. Please see operative details of surgery. Her postoperative course was uneventful. - Disposition Condition at discharge: Good Disposition: DC-01 TO HOME OR SELFCARE Short Stay Discharge Plan Activity: other (pelvic rest for 1 week) Diet: regular Additional Instructions: Follow-up is not required Follow-up as needed Prescriptions: Ibuprofen [Motrin] 800 mg PO Q8HR PRN #60 tablet PRN Reason: Pain, Mild (1-3) HYDROcodone/APAP 5-325 [[place] 5/325] 1 each PO Q6HR PRN #20 tablet PRN Reason: Pain
[2018-11-01] MEDS ORDERED: LACTATED RINGERS 1,000 ML IV SCH (09:00)
[2018-11-01] MEDS ORDERED: MARCAINE 0.5% INFILTRATI ONE ×2 (10:48→11:33)
[2018-11-01] MEDS ORDERED: VERSED ONE (10:52)
[2018-11-01] MEDS ORDERED: DIPRIVAN 10 MG/ML IV ONE (10:52)
[2018-11-01] MEDS ORDERED: SUBLIMAZE ONE (10:52)
[2018-11-01] MEDS ORDERED: ZEMURON IV ONE (11:09)
[2018-11-01] MEDS ORDERED: NACL 0.9% IR ONE (11:34)
[2018-11-01] MEDS ORDERED: TORADOL ONE (11:45)
[2018-11-01] MEDS ORDERED: ZOFRAN ONE (11:45)
[2018-11-01] MEDS ORDERED: BLOXIVERZ ONE (11:45)
[2018-11-01] MEDS ORDERED: DECADRON ONE (11:45)
[2018-11-01] MEDS ORDERED: ROBINUL ONE (11:45)
[2018-11-01] MEDS ORDERED: REGLAN ONE (11:46)
[2018-11-01] MEDS ORDERED: NACL 0.9% 1000 ML 1,000 ML ONE (11:47)
--- NOTE | 2018-11-01 11:54 | Operative Report ---
Operative Report Operative Report: Date of surgery: 11/01/2018 Preoperative diagnosis: Unwanted fertility Postoperative diagnosis: Same as above Procedure: Laparoscopic bilateral tubal ligation with Filshie clips Surgeon: Elizabeth Russell M.D. Anesthesia: General endotracheal anesthesia Estimated blood loss: Minimal Findings: Normal uterus tubes and ovaries Indication: 38-year-old with undesired fertility. Patient is elected to undergo permanent sterilization. Procedure: The patient was taken to the operating room and given general endotracheal anesthesia without complication. The patient is prepped and draped in a normal sterile fashion. A bivalve speculum was placed in the patient's vagina and a single-tooth tenaculum was placed on the anterior lip of the cervix .A uterine acorn manipulator was placed, and the bivalve speculum was then removed. Attention was then turned to the patient's abdomen where a 5 mm infraumbilical skin incision was then made. A Veress needle was placed and peritoneal entry was verified water-filled syringe. Insufflation of the peritoneal cavity was performed with CO2 gas. A 5 mm trocar was placed and the laparoscope was then inserted. The patient was then placed in Trendelenburg. A 7 mm suprapubic skin incision was then made. Under direct visualization a 7 mm trocar was then placed. General survey of the patient's abdomen revealed normal uterus tubes and ovaries. The fallopian tube was then followed out to the fimbriated end. A Filshie clip was placed, on the ampullary portion of the tube. This was performed on the contralateral side as well. The 7 mm trocar was then removed. The pneumoperitoneum was then released. The 5 mm trocar laparoscope was then removed. The skin incisions were then closed with 4-0 Monocryl. The incisions were injected with quarter percent Marcaine. Dressings were applied to the incision. The vaginal instruments were then removed atraumatically. Then successfully extubated and taken to the recovery room. All sponge laps and needle counts were correct 2.
[2018-11-01] MEDS: DILAUDID IV PRN ×2 (12:07→12:21)
[2018-11-01] MEDS ORDERED: NORCO 5/325 PO PRN (12:34)
[2018-11-01 12:51] VITALS: BP 126/82
--- NOTE | 2018-11-01 13:16 | Post Anesthesia Evaluation ---
- Post Anesthesia Evaluation Patient Participated: Yes Airway Patent: Yes Stable Respiratory Function: Yes Nausea/Vomiting: No Temp > 96.8F: Yes Pain Manageable: Yes Adequeate Hydration: Yes Anesthesia Complications: No Block Receding Appropriately: Not Applicable Patient on Ventilator: No
== END 2018-11-01 13:45 | disposition home or self-care (01) ==
LOC: OR 07:33
PROVIDERS: ATTEND Obstetrics & Gynecology
DX: Z30.2 Encounter for sterilization (principal); Z79.899 Other long term (current) drug therapy; Z90.49 Acquired absence of other specified parts of digestive tract; Z83.3 Family history of diabetes mellitus; Z98.890 Other specified postprocedural states; Z82.49 Family history of ischemic heart disease and other diseases of the circulatory system
CPT/HCPCS: 58671; 81025; J1100; J1170; J1885; J2250; J2405; J2704; J2710; J2765; J3010; J7030; J7120

== ENCOUNTER 2019-04-14 14:48 | Emergency (ER) | payer MEDICAID ==
--- NOTE | 2019-04-14 15:36 | Event Note ---
ED Screening Note Date of service: 04/14/19 Time: 15:35 ED Screening Note: Pt complains of headaches x 4 days denies hx of migraines This initial assessment/diagnostic orders/clinical plan/treatment(s) is/are subject to change based on patients health status, clinical progression and re-assessment by fellow clinical providers in the ED. Further treatment and workup at subsequent clinical providers discretion. Patient/guardian urged not to elope from the ED as their condition may be serious if not clinically assessed and managed. Initial orders include: labs
[2019-04-14 15:56] LABS: HCG Qualitative,Urine Negative (Negative)
[2019-04-14 16:17] LABS: Basophils % (Auto) 0.4 % (0.0-1.8); Eosinophils % (Auto) 0.5 % (0.0-4.3); Hematocrit 38.8 % (30.3-42.9); Hemoglobin 13.2 gm/dl (10.1-14.3); Lymphocytes # (Auto) 1.9 K/mm3 (1.2-5.4); Lymphocytes % (Auto) 20.3 % (13.4-35.0); Mean Corpuscular HGB Conc 34 % (30-34); Mean Corpuscular Volume 86 fl (79-97); Monocytes # (Auto) 0.3 K/mm3 (0.0-0.8); Monocytes % (Auto) 2.9 % (0.0-7.3); Platelet Count 407 K/mm3 (140-440); Red Blood Count 4.51 M/mm3 (3.65-5.03); Red Cell Distribution Width 13.8 % (13.2-15.2)
[2019-04-14 16:40] LABS: Alanine Aminotransferase 23 units/L (7-56); Albumin 4.2 g/dL (3.9-5); BUN/Creatinine Ratio 18; Blood Urea Nitrogen 11 mg/dL (7-17); Calcium 9.6 mg/dL (8.4-10.2); Hemolysis Index 4
[2019-04-14] MEDS ORDERED: BUTALB/ACETAMINOPHEN/CAFFEINE TAB PO ONE (21:52)
--- NOTE | 2019-04-14 21:57 | Emergency Department Report ---
ED Headache HPI - General Chief Complaint: Headache Stated Complaint: HEADACHE X4DAYS Time Seen by Provider: 04/14/19 15:35 Source: patient Exam Limitations: no limitations - History of Present Illness Initial Comments: 39-year-old female with no significant past medical history presents to the ER today complaining of global headache. Patient states that her headache has been constant for the past 4 days. Gradual in onset. She states that it radiates down to her back. She denies any modifying factors. She denies any recent head trauma. Mild nausea but no vomiting. States that she tried Motrin and Tylenol without any relief. He reports some nasal congestion, but no other URI symptoms. She denies history of headaches. He denies any dizziness, vision changes, numbness, tingling, focal weakness, syncope, or any other associated symptoms. Timing/Duration: other (4 days) Quality: moderate, throbbing Head Injury Location: global Recent Head Trauma: no recent headache/trauma Modifying Factors: improves with: other (None) Associated Symptoms: nausea/vomiting, nasal congestion. denies: confusion, fatigue, facial pain, fever/chills, flushing, nasal drainage, numbness in legs/feet, rash, seizures, sinus infection, stiff neck, vision changes, weakness Allergies/Adverse Reactions: Allergies No Known Allergies Allergy (Verified 10/26/18 17:52) Home Medications: Ambulatory Orders HYDROcodone/APAP 5-325 [[place] 5/325] 1 each PO Q6HR PRN #20 tablet 11/01/18 Ibuprofen [Motrin] 800 mg PO Q8HR PRN #60 tablet 11/01/18 Butalb/Acetamin/Caff 50-325-40 [Fioricet 50-325-40] 1 tab PO Q4H PRN #20 tablet 04/14/19 Fluticasone [Flonase] 2 spray NS QDAY #1 bottle 04/14/19 Loratadine/Pseudoephedrine [Claritin-D 12Hr] 1 each PO Q12H #30 tablet 04/14/19 ED Review of Systems ROS: Stated complaint: HEADACHE X4DAYS Other details as noted in HPI Comment: All other systems reviewed and negative Constitutional: denies: chills, diaphoresis, fever, weakness Eyes: denies: eye pain, vision change ENT: congestion. denies: ear pain, throat pain, dental pain Respiratory: denies: cough, shortness of breath, SOB with exertion, SOB at rest Cardiovascular: denies: chest pain Gastrointestinal: nausea. denies: abdominal pain, vomiting Musculoskeletal: denies: arthralgia, myalgia Neurological: headache. 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) Hx Asthma: No Hx COPD: No Hx HIV: No Additional medical history: back injury, Vaginal delivery x 4 - Surgical History Hx Cholecystectomy: Yes - Social History Smoking Status: Never Smoker - Medications Home Medications: Home Medications Medication Instructions Recorded Confirmed Last Taken Type HYDROcodone/APAP 5-325 [[place] 1 each PO Q6HR PRN #20 tablet 11/01/18 Unknown Rx 5/325] Ibuprofen [Motrin] 800 mg PO Q8HR PRN #60 tablet 11/01/18 Unknown Rx Butalb/Acetamin/Caff 50-325-40 1 tab PO Q4H PRN #20 tablet 04/14/19 Unknown Rx [Fioricet 50-325-40] Fluticasone [Flonase] 2 spray NS QDAY #1 bottle 04/14/19 Unknown Rx Loratadine/Pseudoephedrine 1 each PO Q12H #30 tablet 04/14/19 Unknown Rx [Claritin-D 12Hr] ED Physical Exam - General Limitations: No Limitations General appearance: alert, in no apparent distress - Head Head exam: Present: atraumatic, normocephalic - Eye Eye exam: Present: normal appearance, PERRL, EOMI Pupils: Present: normal accommodation - ENT ENT exam: Present: normal exam, normal orophraynx, mucous membranes dry, TM's normal bilaterally, other (+maxillary and frontal sinus tenderness bilaterally) - Neck Neck exam: Present: normal inspection, tenderness, full ROM, other (patient does have some mild tenderness along the muscles of the posterior cervical spine; no vertebral tenderness; ). Absent: meningismus - Respiratory Respiratory exam: Present: normal lung sounds bilaterally. Absent: respiratory distress - Cardiovascular Cardiovascular Exam: Present: regular rate, normal rhythm, normal heart sounds - GI/Abdominal GI/Abdominal exam: Present: soft. Absent: distended, tenderness - Neurological Exam Neurological exam: Present: alert, altered, oriented X3, CN II-XII intact, normal gait. Absent: motor sensory deficit - Psychiatric Psychiatric exam: Present: normal affect, normal mood - Skin Skin exam: Present: intact ED Course Vital Signs 04/14/19 14:53 Temperature 98.5 F Pulse Rate 86 Respiratory 16 Rate Blood Pressure 150/86 O2 Sat by Pulse 96 Oximetry ED Medical Decision Making - Lab Data Result diagrams: 04/14/19 16:08 04/14/19 16:08 - Medical Decision Making 39 year old female with no significant pmhx presents with acute QUIROZ 4 days. The patient is currently resting comfortably, she is alert, talkative, interactive and in no distress. She appears well. She is neurologically intact, she has a normal mental status, and is ambulatory in the ED. Her history, exam, and diagnostic testing at her current condition does not suggest meningitis, stroke, sepsis, subarachnoid hemorrhage, intracranial bleed, encephalitis, or significa nt pathology to warrant further testing, continued ED treatment, admission, neurological consultation or other specialist evaluation at this point. Her vital signs are stable. Patient's condition is stable and appropriate for discharge. Discussed with patient. Suspected diagnosis and treatment plan discussed with patient. If any worse she understands to return to the ER. Critical care attestation.: If time is entered above; I have spent that time in minutes in the direct care of this critically ill patient, excluding procedure time. ED Disposition Clinical Impression: Allergic sinusitis, Tension type headache, unspecified Disposition: DC-01 TO HOME OR SELFCARE Is pt being admited?: No Does the pt Need Aspirin: No Condition: Stable Instructions: Tension Headache (ED), Sinusitis (ED) Prescriptions: Loratadine/Pseudoephedrine [Claritin-D 12Hr] 1 each PO Q12H #30 tablet Butalb/Acetamin/Caff 50-325-40 [Fioricet 50-325-40] 1 tab PO Q4H PRN #20 tablet PRN Reason: Headache Fluticasone [Flonase] 2 spray NS QDAY #1 bottle Referrals: PRIMARY CARE, [Primary Care Provider] - 3-5 Days
[2019-04-14 22:31] VITALS: BP 126/99
== END 2019-04-14 22:32 | disposition home or self-care (01) ==
LOC: ED 14:48
DX: J30.9 Allergic rhinitis, unspecified (principal); G44.209 Tension-type headache, unspecified, not intractable; Z90.49 Acquired absence of other specified parts of digestive tract; Z79.899 Other long term (current) drug therapy
CPT/HCPCS: 36415; 80053; 81025; 85025

== ENCOUNTER 2019-09-01 12:18 | Emergency (ER) | payer MEDICAID ==
[2019-09-01] MEDS ORDERED: oxyCODONE /ACETAMINOPHEN 5-325MG TAB PO ONE (14:37)
--- NOTE | 2019-09-01 14:37 | Emergency Department Report ---
ED Back Pain/Injury HPI - General Chief Complaint: Fall Stated Complaint: FALL Time Seen by Provider: 09/01/19 14:26 Source: patient Limitations: No Limitations - History of Present Illness Initial Comments: 39 yo female fell down approx. 6 steps last night on her back and bottom. She denies head injury no LOC. C/o neck, mid-back and lower back pain. C/o suprabupic discomfort started before the fall. She took Ibuprofen at 8am this morning without relief. -: During the night Similar Symptoms Previously: No Place: home Radiation: none Severity: moderate Quality: sharp, aching Consistency: constant Improves With: none Worsens With: movement Context: fall (downstairs at home approx. 6 steps) Associated Symptoms: denies: confusion, weakness, chest pain, numbness, headaches, nausea/vomiting, seizure, shortness of breath Treatments Prior to Arrival: NSAIDS - Related Data Previous Rx's Medication Instructions Recorded Last Taken Type HYDROcodone/APAP 5-325 [[place] 1 each PO Q6HR PRN #20 tablet 11/01/18 Unknown Rx 5/325] Ibuprofen [Motrin] 800 mg PO Q8HR PRN #60 tablet 11/01/18 Unknown Rx Butalb/Acetamin/Caff 50-325-40 1 tab PO Q4H PRN #20 tablet 04/14/19 Unknown Rx [Fioricet 50-325-40] Fluticasone [Flonase] 2 spray NS QDAY #1 bottle 04/14/19 Unknown Rx Loratadine/Pseudoephedrine 1 each PO Q12H #30 tablet 04/14/19 Unknown Rx [Claritin-D 12Hr] Ibuprofen [Motrin] 800 mg PO Q8HR PRN #21 tablet 09/01/19 Unknown Rx cephALEXin [Keflex] 500 mg PO Q12HR 7 Days #14 cap 09/01/19 Unknown Rx Allergies Allergy/AdvReac Type Severity Reaction Status Date / Time No Known Allergies Allergy Verified 10/26/18 17:52 ED Review of Systems ROS: Stated complaint: FALL Other details as noted in HPI Comment: All other systems reviewed and negative Constitutional: denies: chills, fever ENT: denies: ear pain, dental pain Respiratory: denies: cough, shortness of breath, SOB with exertion, wheezing Cardiovascular: denies: chest pain, palpitations, dyspnea on exertion Endocrine: no symptoms reported Gastrointestinal: abdominal pain Musculoskeletal: back pain, other (neck pain) Skin: denies: rash Neurological: denies: headache, weakness, numbness, paresthesias, abnormal gait Psychiatric: denies: depression 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) Hx Asthma: No Hx COPD: No Hx HIV: No Additional medical history: back injury, Vaginal delivery x 4 - Surgical History Past Surgical History?: Yes Hx Cholecystectomy: Yes - Social History Smoking Status: Never Smoker - Medications Home Medications: Home Medications Medication Instructions Recorded Confirmed Last Taken Type HYDROcodone/APAP 5-325 [[place] 1 each PO Q6HR PRN #20 tablet 11/01/18 Unknown Rx 5/325] Ibuprofen [Motrin] 800 mg PO Q8HR PRN #60 tablet 11/01/18 Unknown Rx Butalb/Acetamin/Caff 50-325-40 1 tab PO Q4H PRN #20 tablet 04/14/19 Unknown Rx [Fioricet 50-325-40] Fluticasone [Flonase] 2 spray NS QDAY #1 bottle 04/14/19 Unknown Rx Loratadine/Pseudoephedrine 1 each PO Q12H #30 tablet 04/14/19 Unknown Rx [Claritin-D 12Hr] Ibuprofen [Motrin] 800 mg PO Q8HR PRN #21 tablet 09/01/19 Unknown Rx cephALEXin [Keflex] 500 mg PO Q12HR 7 Days #14 cap 09/01/19 Unknown Rx ED Physical Exam - General Limitations: No Limitations General appearance: alert, in no apparent distress - Head Head exam: Present: atraumatic, normal inspection - Eye Eye exam: Present: normal appearance, PERRL, EOMI - ENT ENT exam: Present: normal exam, mucous membranes dry - Neck Neck exam: Present: tenderness, other (cervical spine tenderness) - Respiratory Respiratory exam: Present: normal lung sounds bilaterally. Absent: respiratory distress, wheezes, rales - Cardiovascular Cardiovascular Exam: Present: regular rate, normal heart sounds - Extremities Exam Extremities exam: Present: normal inspection, full ROM - Back Exam Back exam: Present: paraspinal tenderness, other (mid thoraic spine tenderness, mid lower back spinal tenderness with palpation) - Neurological Exam Neurological exam: Present: alert, oriented X3 - Psychiatric Psychiatric exam: Present: normal affect - Skin Skin exam: Present: warm, dry, intact, normal color. Absent: rash ED Course Vital Signs 09/01/19 09/01/19 12:42 14:45 Temperature 98.1 F 98 F Pulse Rate 94 H 78 Respiratory 18 16 Rate Blood Pressure 120/82 119/77 [Right] O2 Sat by Pulse 99 99 Oximetry ED Medical Decision Making - Radiology Data Radiology results: report reviewed X-ray Lumbar Spine BONES / JOINT(S): There is a transitional lumbosacral segment. There is mild lower lumbar spondylosis. The pedicles are intact and the SI joints are normal. There is no evidence of fracture or subluxation. SOFT TISSUES: No significant abnormality Cervical Spine X-ray FINDINGS: BONES / JOINT(S): The vertebral body heights and disc spaces are well- maintained. There is no evidence of fracture or subluxation. No significant arthritis. SOFT TISSUES: The prevertebral soft tissues are normal. ADDITIONAL FINDINGS: The visualized lung apices are clear. Thoraic Spine No acute findings - Medical Decision Making X-rays of cervical spine, thoraic spine and lumbar spine have no acute findings Urine shows a WBC of 34. Plan to treat patient for UTI with cephalexin 500 twice daily x7 days. Critical Care Time: No Critical care attestation.: If time is entered above; I have spent that time in minutes in the direct care of this critically ill patient, excluding procedure time. ED Disposition Clinical Impression: UTI (urinary tract infection) Qualifiers: Urinary tract infection type: acute cystitis Hematuria presence: with hematuria Qualified Code(s): N30.01 - Acute cystitis with hematuria Contusion Qualifiers: Encounter type: initial encounter Contusion area: lower back Qualified Code(s): S30.0XXA - Contusion of lower back and pelvis, initial encounter Disposition: TO HOME OR SELFCARE Is pt being admited?: No Does the pt Need Aspirin: No Condition: Stable Instructions: Urinary Tract Infection in Women (ED), Contusion in Adults (ED) Prescriptions: cephALEXin [Keflex] 500 mg PO Q12HR 7 Days #14 cap Ibuprofen [Motrin] 800 mg PO Q8HR PRN #21 tablet PRN Reason: Pain , Severe (7-10) Referrals: PRIMARY CARE,MD [Primary Care Provider] - 3-5 Days Time of Disposition: 16:01
[2019-09-01 15:44] LABS: Bacteria,Urine 2+ /HPF (Negative); Bilirubin,Urine NEG (Negative); Blood,Urine NEG (Negative); Calcium Oxalate Crystals,Urine 3+; Color,Urine Amber (Yellow); Mucus,Urine 3+ /HPF; Urobilinogen,Urine < 2.0 mg/dL (<2.0)
[2019-09-01 15:46] LABS: HCG Qualitative,Urine Negative (Negative)
[2019-09-01 16:10] VITALS: BP 123/74
== END 2019-09-01 16:10 | disposition home or self-care (01) ==
LOC: ED 12:18
DX: S30.0XXA Contusion of lower back and pelvis, initial encounter (principal); N39.0 Urinary tract infection, site not specified; F31.9 Bipolar disorder, unspecified; Z90.49 Acquired absence of other specified parts of digestive tract; Z79.1 Long term (current) use of non-steroidal anti-inflammatories (NSAID); Z79.899 Other long term (current) drug therapy; W10.9XXA Fall (on) (from) unspecified stairs and steps, initial encounter; Y93.89 Activity, other specified; Y92.009 Unspecified place in unspecified non-institutional (private) residence as the place of occurrence of the external cause; Y99.8 Other external cause status
CPT/HCPCS: 72040; 72070; 72100; 81001; 81025; 87076; 87086; 87186

== ENCOUNTER 2020-03-14 06:02 | Emergency (ER) | payer SELFPAY ==
[2020-03-14 06:28] VITALS: BP 135/88
[2020-03-14] MEDS ORDERED: ASPIRIN 325 MG TAB PO ONE (06:33)
--- NOTE | 2020-03-14 07:02 | XRay Report ---
CHEST 1 VIEW, 03/14/2020 5:54 AM CLINICAL INFORMATION/INDICATION: Chest pain COMPARISON: None. FINDINGS: SUPPORT DEVICES: None. HEART: The cardiac silhouette is normal in size. LUNGS/PLEURA: The lungs are clear of focal airspace disease or significant pleural effusion. ADDITIONAL FINDINGS: No additional acute findings. IMPRESSION: 1. No evidence of acute cardiopulmonary process. Signer Name: Cesia Randall MD Signed: 03/14/2020 6:58 AM Workstation Name: [id number]
[2020-03-14 07:06] LABS: Basophils % (Auto) 0.3 % (0.0-1.8); Eosinophils # (Auto) 0.1 K/mm3 (0.0-0.4); Eosinophils % (Auto) 1.1 % (0.0-4.3); Hemoglobin 12.5 gm/dl (10.1-14.3); Lymphocytes # (Auto) 1.7 K/mm3 (1.2-5.4); Lymphocytes % (Auto) 18.2 % (13.4-35.0); Mean Corpuscular HGB Conc 34 % (30-34); Mean Corpuscular Volume 87 fl (79-97); Monocytes # (Auto) 0.4 K/mm3 (0.0-0.8); Monocytes % (Auto) 4.5 % (0.0-7.3); Platelet Count 388 K/mm3 (140-440); Red Blood Count 4.23 M/mm3 (3.65-5.03); Red Cell Distribution Width 13.4 % (13.2-15.2)
[2020-03-14 07:56] LABS: Blood Urea Nitrogen 13 mg/dL (7-17); Calcium 9.6 mg/dL (8.4-10.2); Hemolysis Index 0
[2020-03-14 07:57] LABS: BUN/Creatinine Ratio 22
== END 2020-03-14 10:04 ==
LOC: ED 06:02
DX: R07.89 Other chest pain (principal); Z53.21 Procedure and treatment not carried out due to patient leaving prior to being seen by health care provider
CPT/HCPCS: 36415; 71045; 80048; 84484; 85025; 93005

== ENCOUNTER 2020-03-14 13:54 | Emergency (ER) | payer SELFPAY ==
[2020-03-14 13:59] VITALS: BP 139/84
--- NOTE | 2020-03-14 15:26 | Emergency Department Report ---
ED Chest Pain HPI - General Chief Complaint: Chest Pain Stated Complaint: CHEST PAIN Time Seen by Provider: 03/14/20 15:08 Source: patient Mode of arrival: Ambulatory Limitations: No Limitations - History of Present Illness Initial Comments: 40-year-old -[place] female presents to the emergency room complaining of chest pain that radiates to her back and left arm. Patient states that pain is worse with movement. 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 Patient denies any injury. Denies any fall. States she has no past medical history of any cardiac disease no hypertension no diabetes no cholesterol. Patient denies any shortness of breath no difficulty in breathing. Patient denies taking any control. She has not traveled outside the country or on long trips. Onset/Timin -: days(s) Pain Location: left chest Pain Radiation: LUE (Shoulder), back Severity: moderate Severity scale (0 -10): 8 Quality: aching, pressure Consistency: intermittent Improves With: rest Worsens With: palpation, movement Context: other (Lifts heavy objects) re: nausea. denies: vomting, diaphoresis, dyspnea, sense of impending doom Other Symptoms: denies: cough, fever, syncope, rash, acid taste in mouth, leg swelling, palpitations, burping Treatments Prior to Arrival: none Aspirin use within the Past 7 Days: (0) No - Related Data On Oral Contraceptives: No Previous Rx's Medication Instructions Recorded Last Taken Type HYDROcodone/APAP 5-325 [[place] 1 each PO Q6HR PRN #20 tablet 11/01/18 Unknown Rx 5/325] Ibuprofen [Motrin] 800 mg PO Q8HR PRN #60 tablet 11/01/18 Unknown Rx Butalb/Acetamin/Caff 50-325-40 1 tab PO Q4H PRN #20 tablet 04/14/19 Unknown Rx [Fioricet 50-325-40] Fluticasone [Flonase] 2 spray NS QDAY #1 bottle 04/14/19 Unknown Rx Loratadine/Pseudoephedrine 1 each PO Q12H #30 tablet 04/14/19 Unknown Rx [Claritin-D 12Hr] Ibuprofen [Motrin] 800 mg PO Q8HR PRN #21 tablet 09/01/19 Unknown Rx cephALEXin [Keflex] 500 mg PO Q12HR 7 Days #14 cap 09/01/19 Unknown Rx methOCARBAMOL [Robaxin TAB] 500 mg PO BID #14 tab 03/14/20 Unknown Rx traMADoL [Ultram 50 MG tab] 50 mg PO Q6HR PRN #12 tablet 03/14/20 Unknown Rx Allergies Allergy/AdvReac Type Severity Reaction Status Date / Time No Known Allergies Allergy Verified 10/26/18 17:52 Heart Score - HEART Score History: Slightly suspicious EKG: Normal Age: < 45 Risk factors: No known risk factors Troponin: < normal limit HEART Score: 0 ED Review of Systems ROS: Stated complaint: CHEST PAIN Other details as noted in HPI Comment: All other systems reviewed and negative 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) Hx Asthma: No Hx COPD: No Hx HIV: No Additional medical history: back injury, Vaginal delivery x 4 - Surgical History Past Surgical History?: Yes Hx Cholecystectomy: Yes - Social History Smoking Status: Never Smoker Substance Use Type: None - Medications Home Medications: Home Medications Medication Instructions Recorded Confirmed Last Taken Type HYDROcodone/APAP 5-325 [[place] 1 each PO Q6HR PRN #20 tablet 11/01/18 Unknown Rx 5/325] Ibuprofen [Motrin] 800 mg PO Q8HR PRN #60 tablet 11/01/18 Unknown Rx Butalb/Acetamin/Caff 50-325-40 1 tab PO Q4H PRN #20 tablet 04/14/19 Unknown Rx [Fioricet 50-325-40] Fluticasone [Flonase] 2 spray NS QDAY #1 bottle 04/14/19 Unknown Rx Loratadine/Pseudoephedrine 1 each PO Q12H #30 tablet 04/14/19 Unknown Rx [Claritin-D 12Hr] Ibuprofen [Motrin] 800 mg PO Q8HR PRN #21 tablet 09/01/19 Unknown Rx cephALEXin [Keflex] 500 mg PO Q12HR 7 Days #14 cap 09/01/19 Unknown Rx methOCARBAMOL [Robaxin TAB] 500 mg PO BID #14 tab 03/14/20 Unknown Rx traMADoL [Ultram 50 MG tab] 50 mg PO Q6HR PRN #12 tablet 03/14/20 Unknown Rx ED Physical Exam - General Limitations: No Limitations General appearance: alert, in no apparent distress - Head Head exam: Present: atraumatic, normocephalic - Eye Eye exam: Present: normal appearance, PERRL, EOMI - ENT ENT exam: Present: mucous membranes moist - Neck Neck exam: Present: normal inspection, full ROM. Absent: tenderness, lym phadenopathy - Respiratory Respiratory exam: Present: normal lung sounds bilaterally, chest wall tenderness. Absent: respiratory distress, accessory muscle use - Cardiovascular Cardiovascular Exam: Present: regular rate, normal rhythm. Absent: systolic murmur, diastolic murmur, rubs, gallop - GI/Abdominal GI/Abdominal exam: Present: soft, normal bowel sounds - Expanded Upper Extremity Exam Right Shoulder Exam: Present: full ROM, tenderness. Absent: swelling Upper Arm exam: Present: full ROM, tenderness. Absent: swelling Elbow exam: Present: normal inspection, full ROM. Absent: tenderness, swelling Forearm Wrist exam: Present: normal inspection, full ROM. Absent: tenderness, swelling Hand Wrist exam: Present: normal inspection, full ROM. Absent: tenderness - Back Exam Back exam: Present: full ROM, tenderness (Upper and middle back no vertebral tenderness), muscle spasm. Absent: vertebral tenderness - Neurological Exam Neurological exam: Present: alert, oriented X3 - Psychiatric Psychiatric exam: Present: normal affect, normal mood - Skin Skin exam: Present: warm, dry, intact, normal color. Absent: rash ED Course Vital Signs 03/14/20 13:57 Temperature 97.9 F Pulse Rate 81 Respiratory 16 Rate Blood Pressure 139/84 [Right] O2 Sat by Pulse 98 Oximetry GONZÁLEZ score - González Score Age > 65: (0) No Aspirin use within the Past 7 Days: (0) No 3 or more CAD Risk Factors: (0) No 2 or more Angina events in past 24 hrs: (0) No Known CAD with more than 50% Stenosis: (0) No Elevated Cardiac Markers: (0) No ST Deviation Greater than 0.5mm: (0) No GONZÁLEZ Score: 0 ED Medical Decision Making - Medical Decision Making 40-year-old -[place] female presents to the emergency room complaining of chest pain that radiates to her back and left arm. Patient states that pain is worse with movement. 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 Patient denies any injury. Denies any fall. States she has no past medical history of any cardiac disease no hypertension no diabetes no cholesterol. Patient denies any shortness of breath no difficulty in breathing. Patient denies taking any control. She has not traveled outside the country or on long trips. Patient appears to have costochondritis with left shoulder tenderness. Patient has has a negative troponin normal EKG no cardiac history blood pressure is stable. Patient be discharged home on ibuprofen and Robaxin encouraged to increase water intake. If ibuprofen irritates her she can try taking Tylenol and and tramadol. Labs were ordered under Critical Care Time: No Critical care attestation.: If time is entered above; I have spent that time in minutes in the direct care of this critically ill patient, excluding procedure time. ED Disposition Clinical Impression: Costochondritis, acute, Strain of shoulder, left Disposition: DC-01 TO HOME OR SELFCARE Is pt being admited?: No Does the pt Need Aspirin: No Condition: Stable Instructions: Costochondritis, [id number], Muscle Strain Additional Instructions: Please take pain medication as needed. Do not operate heavy machinery while taking tramadol and Robaxin. Please increase your fluid intake. Rest. Warm heat. Prescriptions: methOCARBAMOL [Robaxin TAB] 500 mg PO BID #14 tab traMADoL [Ultram 50 MG tab] 50 mg PO Q6HR PRN #12 tablet PRN Reason: Pain Referrals: PRIMARY CARE, [Primary Care Provider] - 3-5 Days [facility] [Provider Group] - 3-5 Days Forms: Work/School Release Form(ED)
== END 2020-03-14 15:41 | disposition home or self-care (01) ==
LOC: ED 13:54
DX: S46.912A Strain of unspecified muscle, fascia and tendon at shoulder and upper arm level, left arm, initial encounter (principal); M94.0 Chondrocostal junction syndrome [Tietze]; F31.9 Bipolar disorder, unspecified; Z90.49 Acquired absence of other specified parts of digestive tract; Z79.899 Other long term (current) drug therapy; X50.0XXA Overexertion from strenuous movement or load, initial encounter; Y93.89 Activity, other specified; Y92.89 Other specified places as the place of occurrence of the external cause; Y99.8 Other external cause status
CPT/HCPCS: 99282

== ENCOUNTER 2020-08-07 16:26 | Emergency (ER) | payer MEDICAID, OTHER | END 2020-08-07 18:42 | disposition home or self-care (01) | LOC: ED 16:26 | CPT/HCPCS: 96372; 99282; J1100; J1885 ==

== ENCOUNTER 2020-08-13 16:11 | Emergency (ER) | payer MEDICAID, OTHER ==
[2020-08-13 17:02] VITALS: BP 135/86
--- NOTE | 2020-08-13 18:07 | Emergency Department Report ---
ED General Adult HPI - General Chief complaint: Extremity Injury, Lower Stated complaint: BACK/LEG PAIN Time Seen by Provider: 08/13/20 18:05 Source: patient Mode of arrival: Ambulatory Limitations: No Limitations - History of Present Illness Initial comments: 40-year-old female patient presents emergency department with complaints of left lower back pain radiating down her left lower extremity for approximately 9 days. Patient was evaluated for her symptoms on August 07 and diagnosed with sciatica. She was prescribed muscle relaxers, NSAIDs, and Tylenol with codeine. She has not insistently been taking any of these medications. Patient was unable to fill the muscle relaxer prescription. Tylenol with codeine did not alleviate her symptoms and the Diclofenac upset her stomach. She was referred to [facility] clinic but has not yet scheduled a follow-up appointment. There has been no new fall, trauma, or injury. Symptoms today are consistent with symptoms during prior ED evaluation 6 days ago. Denies fever, chills, saddle anesthesia, bladder/bowel incontinence, urinary retention, paresthesias, numbness, weakness. Denies all other complaints at this time. - Related Data Previous Rx's Medication Instructions Recorded Last Taken Type HYDROcodone/APAP 5-325 [[place] 1 each PO Q6HR PRN #20 tablet 11/01/18 Unknown Rx 5/325] Ibuprofen [Motrin] 800 mg PO Q8HR PRN #60 tablet 11/01/18 Unknown Rx Butalb/Acetamin/Caff 50-325-40 1 tab PO Q4H PRN #20 tablet 04/14/19 Unknown Rx [Fioricet 50-325-40] Fluticasone [Flonase] 2 spray NS QDAY #1 bottle 04/14/19 Unknown Rx Loratadine/Pseudoephedrine 1 each PO Q12H #30 tablet 04/14/19 Unknown Rx [Claritin-D 12Hr] Ibuprofen [Motrin] 800 mg PO Q8HR PRN #21 tablet 09/01/19 Unknown Rx cephALEXin [Keflex] 500 mg PO Q12HR 7 Days #14 cap 09/01/19 Unknown Rx methOCARBAMOL [Robaxin TAB] 500 mg PO BID #14 tab 03/14/20 Unknown Rx traMADoL [Ultram 50 MG tab] 50 mg PO Q6HR PRN #12 tablet 03/14/20 Unknown Rx Acetaminophen/Codeine [Tylenol 1 tab PO Q8H PRN #6 tab 08/07/20 Unknown Rx /Codeine # 3 tab] Diclofenac Sodium 50 mg PO TID PRN #21 tablet. 08/07/20 Unknown Rx methocarbamoL [Methocarbamol] 750 - 1,500 mg PO TID PRN #30 08/07/20 Unknown Rx tablet Famotidine [Pepcid] 10 mg PO BID 10 Days tablet 08/13/20 Unknown Rx Lidocaine [Lidoderm] 1 each TP BID #20 adh..patch 08/13/20 Unknown Rx Meloxicam [Mobic] 15 mg PO DAILY #10 tablet 08/13/20 Unknown Rx Allergies Allergy/AdvReac Type Severity Reaction Status Date / Time No Known Allergies Allergy Verified 10/26/18 17:52 ED Review of Systems ROS: Stated complaint: BACK/LEG PAIN Other details as noted in HPI Other: GENERAL: Negative for fever. CARDIOVASCULAR: Negative for chest pain. PULMONARY: Negative for shortness of breath. GASTROINTESTINAL: Negative for abdominal pain. MUSCULOSKELETAL: Positive for back pain and leg pain. NEUROLOGICAL: Negative for headache. INTEGUMENTARY: Negative for rash. 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) Hx Asthma: No Hx COPD: No Hx HIV: No Additional medical history: back injury, Vaginal delivery x 4 - Surgical History Hx Cholecystectomy: Yes - Social History Smoking Status: Never Smoker Substance Use Type: None - Medications Home Medications: Home Medications Medication Instructions Recorded Confirmed Last Taken Type HYDROcodone/APAP 5-325 [[place] 1 each PO Q6HR PRN #20 tablet 11/01/18 Unknown Rx 5/325] Ibuprofen [Motrin] 800 mg PO Q8HR PRN #60 tablet 11/01/18 Unknown Rx Butalb/Acetamin/Caff 50-325-40 1 tab PO Q4H PRN #20 tablet 04/14/19 Unknown Rx [Fioricet 50-325-40] Fluticasone [Flonase] 2 spray NS QDAY #1 bottle 04/14/19 Unknown Rx Loratadine/Pseudoephedrine 1 each PO Q12H #30 tablet 04/14/19 Unknown Rx [Claritin-D 12Hr] Ibuprofen [Motrin] 800 mg PO Q8HR PRN #21 tablet 09/01/19 Unknown Rx cephALEXin [Keflex] 500 mg PO Q12HR 7 Days #14 cap 09/01/19 Unknown Rx methOCARBAMOL [Robaxin TAB] 500 mg PO BID #14 tab 03/14/20 Unknown Rx traMADoL [Ultram 50 MG tab] 50 mg PO Q6HR PRN #12 tablet 03/14/20 Unknown Rx Acetaminophen/Codeine [Tylenol 1 tab PO Q8H PRN #6 tab 08/07/20 Unknown Rx /Codeine # 3 tab] Diclofenac Sodium 50 mg PO TID PRN #21 tablet. 08/07/20 Unknown Rx methocarbamoL [Methocarbamol] 750 - 1,500 mg PO TID PRN #30 08/07/20 Unknown Rx tablet Famotidine [Pepcid] 10 mg PO BID 10 Days tablet 08/13/20 Unknown Rx Lidocaine [Lidoderm] 1 each TP BID #20 adh..patch 08/13/20 Unknown Rx Meloxicam [Mobic] 15 mg PO DAILY #10 tablet 08/13/20 Unknown Rx ED Physical Exam - General Limitations: No Limitations - Other Other exam information: General: Awake, appropriately interactive, no acute distress. Neck: Supple. Full range of motion intact. Cardiovascular: Normal peripheral perfusion. Pulmonary: No respiratory distress. Patient is speaking normally without use of accessory muscles. Skin: No apparent rashes or lesions. Neurological: No facial asymmetry. Speech is clear. Follows commands. Patient is alert and oriented. Musculoskeletal: Diffuse lumbar tenderness with positive straight leg raise on the left. No saddle anesthesia. No evidence of bladder/bowel incontinence. Ambulatory without assistance. Distal neurovascular and motor/sensory function intact. Psych: Cooperative. Appropriate mood and affect. ED Course Vital Signs 08/13/20 16:58 Temperature 98.6 F Pulse Rate 87 Respiratory 18 Rate Blood Pressure 135/86 O2 Sat by Pulse 99 Oximetry ED Medical Decision Making - Medical Decision Making Patient presents to emergency department adjustment to her previously prescribed medication regimen. She was evaluated in the emergency department last week for ongoing back pain. Her symptoms are not any different today. She is afebrile, hemodynamically stable, neurovascularly intact, ambulatory without assistance. Patient has not arranged for outpatient follow-up. Patient will be prescribed a short course of NSAIDs along with H2 blockers for gastric protection due to reported GI upset with previously prescribed medications. However, the importance of calling primary care provider tomorrow to schedule an appointment and arrange for definitive management of ongoing back pain was emphasized. Patient expressed understanding and is agreeable to plan of care. Strict return precautions provided. The patients back pain is not associated with numbness, tingling, or loss of strength. There is no acute urinary incontinence or retention and no bowel incontinence or retention. There is no saddle anesthesia. The patient is afebrile and neurovascularly intact. No clinical evidence for acute nerve compression (such as cauda equine syndrome) or infection (such as epidural abscess). It has been explained to the patient that advanced imaging such as CT or MRI is not indicated at this time but should be considered if symptoms recur or worsen. BILLING/CODING: This patient encounter does not represent a certified medical emergency. Critical care attestation.: If time is entered above; I have spent that time in minutes in the direct care of this critically ill patient, excluding procedure time. ED Disposition Clinical Impression: Encounter for medication adjustment, History of sciatica Disposition: DC-01 TO HOME OR SELFCARE Is pt being admited?: No Does the pt Need Aspirin: No Condition: Stable Instructions: Back Exercises, [id number] Additional Instructions: Take Tylenol every 4 hours as needed for pain. Take Meloxicam with food as directed. Take Pepcid as directed for GI protection. Use Lidoderm patches as directed. Apply heat to affected area as needed for pain. Gradually advance physical activity slowly as tolerated. You must follow-up with [facility] for definitive management. Call tomorrow to schedule an appointment. Follow-up with [facility] this week. Call tomorrow to schedule appointment. Return to the emergency department immediately for new or worsening symptoms. Specifically, return to the emergency department immediately for fever, worsening pain, difficulty walking, difficulty using the bathroom, loss of bladder/bowel control, numbness, weakness, or any other concerns. Prescriptions: Lidocaine [Lidoderm] 1 each TP BID #20 adh..patch Meloxicam [Mobic] 15 mg PO DAILY #10 tablet Famotidine [Pepcid] 10 mg PO BID 10 Days tablet Referrals: [facility] [Provider Group] - 3-5 Days [facility] [Provider Group] - 3-5 Days Time of Disposition: 18:16
== END 2020-08-13 18:50 | disposition home or self-care (01) ==
LOC: ED 16:11
DX: Z51.81 Encounter for therapeutic drug level monitoring (principal); M54.42 Lumbago with sciatica, left side; F31.9 Bipolar disorder, unspecified; Z98.890 Other specified postprocedural states; Z79.899 Other long term (current) drug therapy
CPT/HCPCS: 99281

== ENCOUNTER 2020-10-05 17:46 | Emergency (ER) | payer OTHER ==
[2020-10-05 20:36] VITALS: BP 147/90
--- NOTE | 2020-10-05 22:05 | Emergency Department Report ---
ED Abdominal Pain HPI - General Chief Complaint: Abdominal Pain Stated Complaint: X2DAYS LOWER BACK / SIDE/ LOWER ABDOMINAL PAIN Time Seen by Provider: 10/05/20 21:33 Source: patient Mode of arrival: Ambulatory Limitations: No Limitations - History of Present Illness MD Complaint: abdominal pain, flank pain -: days(s) (2) Location: suprapubic Radiation: bilateral flank Migration to: no migration Quality: aching Consistency: constant Improves With: nothing Worsens With: nothing Associated Symptoms: denies: vomiting, diarrhea, hematemesis, melena, hematuria, anorexia, syncope - Related Data Previous Rx's Medication Instructions Recorded Last Taken Type HYDROcodone/APAP 5-325 [[place] 1 each PO Q6HR PRN #20 tablet 11/01/18 Unknown Rx 5/325] Ibuprofen [Motrin] 800 mg PO Q8HR PRN #60 tablet 11/01/18 Unknown Rx Butalb/Acetamin/Caff 50-325-40 1 tab PO Q4H PRN #20 tablet 04/14/19 Unknown Rx [Fioricet 50-325-40] Fluticasone [Flonase] 2 spray NS QDAY #1 bottle 04/14/19 Unknown Rx Loratadine/Pseudoephedrine 1 each PO Q12H #30 tablet 04/14/19 Unknown Rx [Claritin-D 12Hr] Ibuprofen [Motrin] 800 mg PO Q8HR PRN #21 tablet 09/01/19 Unknown Rx cephALEXin [Keflex] 500 mg PO Q12HR 7 Days #14 cap 09/01/19 Unknown Rx methOCARBAMOL [Robaxin TAB] 500 mg PO BID #14 tab 03/14/20 Unknown Rx traMADoL [Ultram 50 MG tab] 50 mg PO Q6HR PRN #12 tablet 03/14/20 Unknown Rx Acetaminophen/Codeine [Tylenol 1 tab PO Q8H PRN #6 tab 08/07/20 Unknown Rx /Codeine # 3 tab] Diclofenac Sodium 50 mg PO TID PRN #21 tablet. 08/07/20 Unknown Rx methocarbamoL [Methocarbamol] 750 - 1,500 mg PO TID PRN #30 08/07/20 Unknown Rx tablet Famotidine [Pepcid] 10 mg PO BID 10 Days tablet 08/13/20 Unknown Rx Lidocaine [Lidoderm] 1 each TP BID #20 adh..patch 08/13/20 Unknown Rx Meloxicam [Mobic] 15 mg PO DAILY #10 tablet 08/13/20 Unknown Rx Cyclobenzaprine [Flexeril] 10 mg PO BID PRN 7 Days #14 tablet 08/27/20 Unknown Rx Menthol/Camphor [[place] 1 gm TP Q6H PRN #1 tube 08/27/20 Unknown Rx Ointment] Naproxen 500 mg PO BID PRN #30 tablet 08/27/20 Unknown Rx Ketorolac [Toradol] 10 mg PO Q6H PRN #14 tablet 10/06/20 Unknown Rx Nitrofurantoin [place]/M-Cryst 100 mg PO Q12HR #20 capsule 10/06/20 Unknown Rx [Macrobid CAP] Phenazopyridine [Pyridium] 200 mg PO TID #9 tab 10/06/20 Unknown Rx Allergies Allergy/AdvReac Type Severity Reaction Status Date / Time No Known Allergies Allergy Verified 10/26/18 17:52 ED Review of Systems ROS: Stated complaint: X2DAYS LOWER BACK / SIDE/ LOWER ABDOMINAL PAIN Other details as noted in HPI Comment: All other systems reviewed and negative ED Past Medical Hx - Past Medical History Hx Hypertension: No Hx Congestive Heart Failure: No Hx Diabetes: No Hx Deep Vein Thrombosis: No Hx Liver Disease: Yes (intrahepatic cholestatis of ) Hx Renal Disease: No Hx Sickle Cell Disease: No Hx Seizures: No 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) Hx Asthma: No Hx COPD: No Hx HIV: No Additional medical history: back injury, Vaginal delivery x 4 - Surgical History Hx Cholecystectomy: Yes - Social History Smoking Status: Never Smoker - Medications Home Medications: Home Medications Medication Instructions Recorded Confirmed Last Taken Type HYDROcodone/APAP 5-325 [[place] 1 each PO Q6HR PRN #20 tablet 11/01/18 Unknown Rx 5/325] Ibuprofen [Motrin] 800 mg PO Q8HR PRN #60 tablet 11/01/18 Unknown Rx Butalb/Acetamin/Caff 50-325-40 1 tab PO Q4H PRN #20 tablet 04/14/19 Unknown Rx [Fioricet 50-325-40] Fluticasone [Flonase] 2 spray NS QDAY #1 bottle 04/14/19 Unknown Rx Loratadine/Pseudoephedrine 1 each PO Q12H #30 tablet 04/14/19 Unknown Rx [Claritin-D 12Hr] Ibuprofen [Motrin] 800 mg PO Q8HR PRN #21 tablet 09/01/19 Unknown Rx cephALEXin [Keflex] 500 mg PO Q12HR 7 Days #14 cap 09/01/19 Unknown Rx methOCARBAMOL [Robaxin TAB] 500 mg PO BID #14 tab 03/14/20 Unknown Rx traMADoL [Ultram 50 MG tab] 50 mg PO Q6HR PRN #12 tablet 03/14/20 Unknown Rx Acetaminophen/Codeine [Tylenol 1 tab PO Q8H PRN #6 tab 08/07/20 Unknown Rx /Codeine # 3 tab] Diclofenac Sodium 50 mg PO TID PRN #21 tablet.dr 08/07/20 Unknown Rx methocarbamoL [Methocarbamol] 750 - 1,500 mg PO TID PRN #30 08/07/20 Unknown Rx tablet Famotidine [Pepcid] 10 mg PO BID 10 Days tablet 08/13/20 Unknown Rx Lidocaine [Lidoderm] 1 each TP BID #20 adh..patch 08/13/20 Unknown Rx Meloxicam [Mobic] 15 mg PO DAILY #10 tablet 08/13/20 Unknown Rx Cyclobenzaprine [Flexeril] 10 mg PO BID PRN 7 Days #14 tablet 08/27/20 Unknown Rx Menthol/Camphor [[place] 1 gm TP Q6H PRN #1 tube 08/27/20 Unknown Rx Ointment] Naproxen 500 mg PO BID PRN #30 tablet 08/27/20 Unknown Rx Ketorolac [Toradol] 10 mg PO Q6H PRN #14 tablet 10/06/20 Unknown Rx Nitrofurantoin [place]/M-Cryst 100 mg PO Q12HR #20 capsule 10/06/20 Unknown Rx [Macrobid CAP] Phenazopyridine [Pyridium] 200 mg PO TID #9 tab 10/06/20 Unknown Rx ED Physical Exam - General Limitations: No Limitations General appearance: alert, in no apparent distress - Head Head exam: Present: atraumatic, normocephalic - Eye Eye exam: Present: normal appearance, PERRL, EOMI Pupils: Present: normal accommodation - ENT ENT exam: Present: normal exam, normal orophraynx, mucous membranes moist - Neck Neck exam: Present: normal inspection, full ROM. Absent: tenderness, meningismus, thyromegaly - Respiratory Respiratory exam: Present: normal lung sounds bilaterally. Absent: respiratory distress - Cardiovascular Cardiovascular Exam: Present: regular rate, normal rhythm. Absent: systolic murmur, diastolic murmur, rubs, gallop - GI/Abdominal GI/Abdominal exam: Present: soft, normal bowel sounds - Extremities Exam Extremities exam: Present: normal inspection - Back Exam Back exam: Present: normal inspection - Neurological Exam Neurological exam: Present: alert, oriented X3 - Psychiatric Psychiatric exam: Present: normal affect, normal mood - Skin Skin exam: Present: warm, dry, intact, normal color. Absent: rash ED Course Vital Signs 10/05/20 10/06/20 20:33 06:00 Temperature 98.9 F Pulse Rate 89 83 Respiratory 16 16 Rate Blood Pressure 147/90 O2 Sat by Pulse 99 99 Oximetry ED Medical Decision Making - Lab Data Result diagrams: 10/05/20 22:22 10/05/20 22:22 Lab Results 10/05/20 10/05/20 10/06/20 Range/Units 22:22 22:22 Unknown WBC 11.9 H (4.5-11.0) K/mm3 RBC 4.38 (3.65-5.03) M/mm3 Hgb 12.9 (10.1-14.3) gm/dl Hct 38.1 (30.3-42.9) % MCV 87 (79-97) fl MCH 29 (28-32) pg MCHC 34 (30-34) % RDW 13.8 (13.2-15.2) % Plt Count 370 (140-440) K/mm3 Lymph % (Auto) 20.1 (13.4-35.0) % [place] % (Auto) 4.3 (0.0-7.3) % Eos % (Auto) 0.3 (0.0-4.3) % Baso % (Auto) 0.2 (0.0-1.8) % Lymph # (Auto) 2.4 (1.2-5.4) K/mm3 [place] # (Auto) 0.5 (0.0-0.8) K/mm3 Eos # (Auto) 0.0 (0.0-0.4) K/mm3 Baso # (Auto) 0.0 (0.0-0.1) K/mm3 Seg Neutrophils % 75.1 H (40.0-70.0) % Seg Neutrophils # 9.0 H (1.8-7.7) K/mm3 Sodium 143 (137-145) mmol/L Potassium 3.6 (3.6-5.0) mmol/L Chloride 105.9 (98-107) mmol/L Carbon Dioxide 27 (22-30) mmol/L Anion Gap 14 mmol/L BUN 13 (7-17) mg/dL Creatinine 0.6 (0.6-1.2) mg/dL Estimated GFR > 60 ml/min BUN/Creatinine Ratio 22 % Glucose 84 (65-100) mg/dL Calcium 9.4 (8.4-10.2) mg/dL Total Bilirubin 0.20 (0.1-1.2) mg/dL Direct Bilirubin < 0.2 (0-0.2) mg/dL Indirect Bilirubin 0.0 mg/dL AST 10 (5-40) units/L ALT 12 (7-56) units/L Alkaline Phosphatase 104 (35-129) units/L Total Protein 7.5 (6.3-8.2) g/dL Albumin 4.2 (3.9-5) g/dL Albumin/Globulin Ratio 1.3 % Lipase 29 (13-60) units/L Urine Color Yellow (Yellow) Urine Turbidity Slightly-cloudy (Clear) Urine pH 5.0 (5.0-7.0) Ur Specific [place] 1.025 (1.003-1.030) Urine Protein 30 mg/dl (Negative) mg/dL Urine Glucose (UA) Neg (Negative) mg/dL Urine Ketones Neg (Negative) mg/dL Urine Blood Sm (Negative) Urine Nitrite Pos (Negative) Urine Bilirubin Neg (Negative) Urine Urobilinogen < 2.0 (<2.0) mg/dL Ur Leukocyte Esterase Neg (Negative) Urine WBC (Auto) 4.0 (0.0-6.0) /HPF Urine RBC (Auto) 3.0 (0.0-6.0) /HPF U Epithel Cells (Auto) 2.0 (0-13.0) /HPF Urine Bacteria (Auto) 4+ (Negative) /HPF Urine Mucus 3+ /HPF Urine HCG, Qual Negative (Negative) - Medical Decision Making This patient presents with abdominal pain of unclear etiology. Their evaluation has not identified a emergent etiology for the abdominal pain. Specifically, given the very benign exam, normal laboratory studies, and lack of significant risk factors, I have a very low suspicion for appendicitis, ischemic bowel, bowel perforation, or any other life threatening disease. I have discussed with the patient the level of uncertainty with undifferentiated abdominal pain and clearly explained the need to follow-up as noted on the discharge instructions, or return to the Emergency Department immediately if the pain worsens, develops fever, persistent and uncontrollable vomiting, or for any new symptoms or concerns. I discussed with the patient that this presentation today for abdominal pain could represent a significant risk for an acute abdominal process. Although the tests in the ED were essentially normal, there is still a possibility of a process such as appendicitis, diverticulitis, cholecystitis, ulcer, early bowel obstruction, mesenteric ischemia, kidney stone, or even kidney infection which could subsequently cause disability or . The patient understands that they must return within 24 hours for a recheck or see their physician within 24 hours for re-exam due to the possibility of significant surgical or medical process. Critical care attestation.: If time is entered above; I have spent that time in minutes in the direct care of this critically ill patient, excluding procedure time. ED Disposition Clinical Impression: UTI (urinary tract infection) Disposition: -01 TO HOME OR SELFCARE Is pt being admited?: No Does the pt Need Aspirin: No Condition: Stable Instructions: Urinalysis Test, Urinary Tract Infection, Adult, Abdominal Pain (ED) Additional Instructions: You have been evaluated emergency department today for abdominal pain. Your evaluation did not show evidence of any medical conditions requiring emergent intervention at this time. Your lipase was it was elevated but not to a significant degree significant pancreatitis does not appear to be present at this time please drink plenty of fluids. Reduce evolving urinary tract infection improved prescribed some antibiotics as well as some analgesics and pain medication to help with the symptomatic Please schedule an appointment with your primary care physician. Return to emergency department if you experience worsening uncontrolled pain, fevers of 100.4 or greater, recurrent vomiting, inability to tolerate food or fluids by mouth, bloody stools or vomit, black tarry stools, or any other concerning symptoms. Prescriptions: Nitrofurantoin [place]/M-Cryst [Macrobid CAP] 100 mg PO Q12HR #20 capsule Phenazopyridine [Pyridium] 200 mg PO TID #9 tab Ketorolac [Toradol] 10 mg PO Q6H PRN #14 tablet PRN Reason: Pain Referrals: [facility] [Provider Group] - 3-5 Days Forms: Work/School Release Form(ED)
[2020-10-05 23:05] LABS: Basophils % (Auto) 0.2 % (0.0-1.8); Eosinophils % (Auto) 0.3 % (0.0-4.3); Hematocrit 38.1 % (30.3-42.9); Hemoglobin 12.9 gm/dl (10.1-14.3); Lymphocytes # (Auto) 2.4 K/mm3 (1.2-5.4); Lymphocytes % (Auto) 20.1 % (13.4-35.0); Mean Corpuscular HGB Conc 34 % (30-34); Mean Corpuscular Volume 87 fl (79-97); Monocytes # (Auto) 0.5 K/mm3 (0.0-0.8); Monocytes % (Auto) 4.3 % (0.0-7.3); Platelet Count 370 K/mm3 (140-440); Red Blood Count 4.38 M/mm3 (3.65-5.03); Red Cell Distribution Width 13.8 % (13.2-15.2)
[2020-10-05 23:24] LABS: Alanine Aminotransferase 12 units/L (7-56); Albumin 4.2 g/dL (3.9-5); Blood Urea Nitrogen 13 mg/dL (7-17); Calcium 9.4 mg/dL (8.4-10.2); Hemolysis Index 4
[2020-10-05 23:28] LABS: BUN/Creatinine Ratio 22; Bilirubin,Direct < 0.2 mg/dL (0-0.2)
[2020-10-06 04:47] LABS: Bacteria,Urine 4+ /HPF (Negative); Bilirubin,Urine NEG (Negative); Blood,Urine SM (Negative); Color,Urine Yellow (Yellow); Mucus,Urine 3+ /HPF; Urobilinogen,Urine < 2.0 mg/dL (<2.0)
[2020-10-06 04:48] LABS: HCG Qualitative,Urine Negative (Negative)
== END 2020-10-06 06:00 | disposition home or self-care (01) ==
LOC: ED 17:46
DX: M54.5 Low back pain (principal); R10.30 Lower abdominal pain, unspecified; F31.9 Bipolar disorder, unspecified; Z79.899 Other long term (current) drug therapy; Z90.49 Acquired absence of other specified parts of digestive tract
CPT/HCPCS: 36415; 80048; 80076; 81001; 81025; 83690; 85025

== ENCOUNTER 2021-02-03 11:45 | Emergency (ER) | payer SELFPAY ==
[2021-02-03 12:28] VITALS: BP 129/78
--- NOTE | 2021-02-03 12:59 | Emergency Department Report ---
ED Back Pain/Injury HPI - General Chief Complaint: Back Pain/Injury Stated Complaint: HEADACHE/BACK PAIN Time Seen by Provider: 02/03/21 12:20 Source: patient Limitations: No Limitations - History of Present Illness Initial Comments: Patient presents with nontraumatic back pain that radiates all the way up into the neck, scalp, and skull. She states that this started over the last 2 to 3 days. It is described as a tightness. She is developed a headache associated with this. The headache is tightness as well. It radiates around both sides of her head. The pain in her neck and back and head are worse with any kind of movement. It is worse with palpation. It is worse with flexion and extension. There is no trauma. She has no fevers. There is no cough or congestion. She has had no paresthesias. Patient denies incontinence of bowel or bladder. There is no saddle anesthesia. - Related Data Previous Rx's Medication Instructions Recorded Last Taken Type HYDROcodone/APAP 5-325 [[place] 1 each PO Q6HR PRN #20 tablet 11/01/18 Unknown Rx 5/325] Butalb/Acetamin/Caff 50-325-40 1 tab PO Q4H PRN #20 tablet 04/14/19 Unknown Rx [Fioricet 50-325-40] Fluticasone [Flonase] 2 spray NS QDAY #1 bottle 04/14/19 Unknown Rx Loratadine/Pseudoephedrine 1 each PO Q12H #30 tablet 04/14/19 Unknown Rx [Claritin-D 12Hr] cephALEXin [Keflex] 500 mg PO Q12HR 7 Days #14 cap 09/01/19 Unknown Rx traMADoL [Ultram 50 MG tab] 50 mg PO Q6HR PRN #12 tablet 03/14/20 Unknown Rx Acetaminophen/Codeine [Tylenol 1 tab PO Q8H PRN #6 tab 08/07/20 Unknown Rx /Codeine # 3 tab] Famotidine [Pepcid] 10 mg PO BID 10 Days tablet 08/13/20 Unknown Rx Lidocaine [Lidoderm] 1 each TP BID #20 adh..patch 08/13/20 Unknown Rx Menthol/Camphor [[place] 1 gm TP Q6H PRN #1 tube 08/27/20 Unknown Rx Ointment] Nitrofurantoin [place]/M-Cryst 100 mg PO Q12HR #20 capsule 10/06/20 Unknown Rx [Macrobid CAP] Phenazopyridine [Pyridium] 200 mg PO TID #9 tab 10/06/20 Unknown Rx Diclofenac Sodium 50 mg PO TID PRN #21 tablet. 02/03/21 Unknown Rx Metaxalone [Skelaxin] 800 mg PO TID #10 tablet 02/03/21 Unknown Rx Allergies Allergy/AdvReac Type Severity Reaction Status Date / Time No Known Allergies Allergy Verified 10/26/18 17:52 ED Review of Systems ROS: Stated complaint: HEADACHE/BACK PAIN Other details as noted in HPI Comment: All other systems reviewed and negative Constitutional: denies: fever Eyes: denies: vision change ENT: denies: throat pain Respiratory: denies: cough Cardiovascular: denies: chest pain Endocrine: denies: unexplained weight loss Gastrointestinal: denies: abdominal pain Genitourinary: denies: dysuria Musculoskeletal: as per HPI Skin: denies: rash Neurological: as per HPI Hematological/Lymphatic: denies: easy bruising ED Past Medical Hx - Past Medical History Hx Hypertension: No Hx Congestive Heart Failure: No Hx Diabetes: No Hx Deep Vein Thrombosis: No Hx Liver Disease: Yes (intrahepatic cholestatis of ) Hx Renal Disease: No Hx Sickle Cell Disease: No Hx Seizures: No 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) Hx Asthma: No Hx COPD: No Hx HIV: No Additional medical history: back injury, Vaginal delivery x 4 - Surgical History Hx Cholecystectomy: Yes - Family History Family history: no significant - Social History Smoking Status: Never Smoker - Medications Home Medications: Home Medications Medication Instructions Recorded Confirmed Last Taken Type HYDROcodone/APAP 5-325 [[place] 1 each PO Q6HR PRN #20 tablet 11/01/18 Unknown Rx 5/325] Butalb/Acetamin/Caff 50-325-40 1 tab PO Q4H PRN #20 tablet 04/14/19 Unknown Rx [Fioricet 50-325-40] Fluticasone [Flonase] 2 spray NS QDAY #1 bottle 04/14/19 Unknown Rx Loratadine/Pseudoephedrine 1 each PO Q12H #30 tablet 04/14/19 Unknown Rx [Claritin-D 12Hr] cephALEXin [Keflex] 500 mg PO Q12HR 7 Days #14 cap 09/01/19 Unknown Rx traMADoL [Ultram 50 MG tab] 50 mg PO Q6HR PRN #12 tablet 03/14/20 Unknown Rx Acetaminophen/Codeine [Tylenol 1 tab PO Q8H PRN #6 tab 08/07/20 Unknown Rx /Codeine # 3 tab] Famotidine [Pepcid] 10 mg PO BID 10 Days tablet 08/13/20 Unknown Rx Lidocaine [Lidoderm] 1 each TP BID #20 adh..patch 08/13/20 Unknown Rx Menthol/Camphor [[place] 1 gm TP Q6H PRN #1 tube 08/27/20 Unknown Rx Ointment] Nitrofurantoin [place]/M-Cryst 100 mg PO Q12HR #20 capsule 10/06/20 Unknown Rx [Macrobid CAP] Phenazopyridine [Pyridium] 200 mg PO TID #9 tab 10/06/20 Unknown Rx Diclofenac Sodium 50 mg PO TID PRN #21 tablet.dr 02/03/21 Unknown Rx Metaxalone [Skelaxin] 800 mg PO TID #10 tablet 02/03/21 Unknown Rx ED Physical Exam - General Limitations: No Limitations, Other (Pulse ox noted and normal) General appearance: alert, in no apparent distress - Head Head exam: Present: atraumatic, normocephalic, normal inspection - Eye Eye exam: Present: normal appearance, EOMI. Absent: scleral icterus - ENT ENT exam: Present: normal exam, mucous membranes moist, normal external ear exam - Neck Neck exam: Present: normal inspection, tenderness (Paraspinous). Absent: meningismus - Respiratory Respiratory exam: Present: normal lung sounds bilaterally. Absent: respiratory distress - Cardiovascular Cardiovascular Exam: Present: regular rate, normal rhythm - GI/Abdominal GI/Abdominal exam: Present: soft. Absent: tenderness - Extremities Exam Extremities exam: Present: normal capillary refill - Back Exam Back exam: Present: paraspinal tenderness (Diffuse thoracic and lumbar). Absent: CVA tenderness (R), CVA tenderness (L) - Neurological Exam Neurological exam: Present: alert, oriented X3, CN II-XII intact, normal gait, reflexes normal, other (Negative straight leg raise). Absent: motor sensory deficit - Psychiatric Psychiatric exam: Present: normal affect, normal mood - Skin Skin exam: Present: warm, dry ED Course Vital Signs 02/03/21 12:26 Temperature 98.8 F Pulse Rate 87 Respiratory 16 Rate Blood Pressure 129/78 [Right] O2 Sat by Pulse 98 Oximetry - Reevaluation(s) Reevaluation #1: 02/03/21 12:58 Patient was discharged ED Medical Decision Making - Medical Decision Making Patient presents with a 3-day history of nontraumatic neck, back, and headache. She has no red flags suggestive of epidural abscess or hematoma. Patient has no trauma to suggest acute fractures, subdural, or epidural hematomas. She does not have any traumatic injury that would suggest cord impingement or disc herniation. As this is diffuse, I do not believe imaging is necessary. She was treated symptomatically and referred for outpatient evaluation and follow-up. Critical Care Time: No Critical care attestation.: If time is entered above; I have spent that time in minutes in the direct care of this critically ill patient, excluding procedure time. ED Disposition Clinical Impression: Muscle spasm Headache Qualifiers: Headache type: unspecified Headache chronicity pattern: acute headache Intractability: not intractable Qualified Code(s): R51.9 - Headache, unspecified Disposition: 01 HOME / SELF CARE / HOMELESS Is pt being admited?: No Condition: Stable Instructions: Muscle Cramps and Spasms, [id number], Occipital Neuralgia Additional Instructions: USE ICE FOR 2-3 DAYS THEN SWITCH TO HEAT. RETURN FOR PROBLEMS. SEE YOUR DOCTOR FOR RECHECK. Prescriptions: Diclofenac Sodium 50 mg PO TID PRN #21 tablet.dr HANNA Reason: pain Metaxalone [Skelaxin] 800 mg PO TID #10 tablet Referrals: ADIEL CHARLES MD [Staff Physician] - 3-5 Days PRIMARY CAREMD [Referring] - 3-5 Days
== END 2021-02-03 12:30 | disposition home or self-care (01) ==
LOC: ED 11:45
DX: R51.9 Headache, unspecified (principal); M62.830 Muscle spasm of back; F31.9 Bipolar disorder, unspecified
CPT/HCPCS: 99282